=== PATIENT | male | born 1980 | race Hispanic/Latino ===

== ENCOUNTER 2017-01-23 16:42 | Observation (INO) | payer MEDICAID, OTHER ==
[2017-01-23 16:50] VITALS: BMI 23.6
--- NOTE | 2017-01-23 17:27 | ED PDOC ---
Arrival/HPI - General Chief Complaint: Psychiatric Evaluation Time Seen by Provider: 01/23/17 17:11 Historian: Patient, Police - History of Present Illness Narrative History of Present Illness (Text): 01/23/17 17:25 36-year-old male with a history of schizophrenia presents today after swimming in the [place]. Patient states he didn't know that he couldn't [place] he was swimming [place] and the police pulled him out. He denies suicidal or homicidal ideations. Denies fevers or chills. No chest pain or shortness of breath. Denies abdominal pain. Patient denies depression. Denies any complaints at present time. Past Medical History - Provider Review Nursing Documentation Reviewed: Yes - Travel History Have you recently traveled outside [place] w/in the past 3 mons?: No - Infectious Disease Hx of Infectious Diseases: None - Tetanus Immunization Tetanus Immunization: Unknown - Past Medical History Past Medical History: No Previous - Musculoskeletal/Rheumatological Hx Falls: No - Gastrointestinal Hx Gastrointestinal Disorders: No - Genitourinary/Gynecological Hx Genitourinary Disorders: No Hx Reproductive Disorders: No - Psychiatric Hx Psychophysiologic Disorder: No Hx Anxiety: No Hx Bipolar Disorder: No Hx Depression: No Hx Emotional Abuse: No Hx Physical Abuse: No Hx Schizophrenia: No Hx Sexual Abuse: No Hx Substance Use: Yes (elie) - Past Surgical History Past Surgical History: No Previous - Anesthesia Hx Anesthesia: No - Suicidal Assessment Feels Threatened In Home Enviroment: No Family/Social History - Physician Review Nursing Documentation Reviewed: Yes Family/Social History: Unknown Family HX Smoking Status: Former Smoker Hx Alcohol Use: Yes (hx. of DUI) Frequency of alcohol use: Socially Hx Substance Use: Yes (elie) Hx Substance Use Treatment: No Allergies/Home Meds Allergies/Adverse Reactions: Allergies No Known Allergies Allergy (Verified 01/23/17 16:50) Home Medications: Home Meds Medication Instructions Recorded Confirmed Unobtainable 01/23/17 01/23/17 Review of Systems - Review of Systems Constitutional: absent: Fatigue, Fevers Respiratory: absent: SOB, Cough Cardiovascular: absent: Chest Pain, Palpitations Gastrointestinal: absent: Abdominal Pain, Nausea, Vomiting Genitourinary Male: absent: Dysuria Musculoskeletal: absent: Arthralgias, Back Pain, Neck Pain Skin: absent: Rash, Pruritis Neurological: absent: Headache, Dizziness Psychiatric: absent: Anxiety, Depression, Suicidal Ideation Physical Exam Vital Signs Reviewed: Yes Vital Signs Temp Pulse Resp BP Pulse Ox 01/23/17 22:40 59 L 16 112/57 L 98 01/23/17 20:40 98.1 F 71 18 120/73 98 01/23/17 17:41 98.1 F 01/23/17 16:49 73 19 116/73 99 Temperature: Afebrile Blood Pressure: Normal Pulse: Regular Respiratory Rate: Normal Appearance: Positive for: Well-Appearing, Non-Toxic, Comfortable Pain Distress: None Mental Status: Positive for: Alert and Oriented X 3 - Systems Exam Head: Present: Atraumatic Mouth: Present: Moist Mucous Membranes Neck: Present: Normal Range of Motion Respiratory/Chest: Present: Clear to Auscultation, Good Air Exchange. No: Respiratory Distress, Accessory Muscle Use Cardiovascular: Present: Regular Rate and Rhythm, Normal S1, S2. No: Murmurs Abdomen: No: Tenderness, Distention, Rebound, Guarding Back: Present: Normal Inspection Upper Extremity: Present: Normal ROM. No: Tenderness Lower Extremity: Present: Normal ROM. No: Tenderness Neurological: Present: GCS=15, Speech Normal Skin: Present: Warm, Dry, Normal Color. No: Rashes Psychiatric: Present: Alert, Oriented x 3 Medical Decision Making ED Course and Treatment: 01/23/17 17:26 Patient is nontoxic well-appearing in no distress vital signs are stable. CBC Wbc:16.9 CMP WNL Tylenol WNL Salicylate WNL Alcohol level WNL CPK; 6994 Urine drug screen + marijuana UA; + ketones, + blood cxr: pt refused. ekg normal sinus rhythm at 78 bpm normal axis normal intervals no ST elevations pt was seen by PES screener; will need [facility] involuntary screening. pt with elevated CPK; not medically cleared for PES evaluation; refusing medical admission; refusing fluids. pt finally agreed to IV fluids; will give 2 liters NS and recheck CPK. 01/23/17 22:30 pt sleeping in er; will recheck cpk; attempt cxr again. 01/24/17 00:00 cpk improving; pt now agrees to medical admission; case discussed with dr. low; accepts admission. pt will need 1:1 and psych consult. impression: Rhabdomyolysis Admitted to [facility] observational status with one-to-one and psychiatric consult - Lab Interpretations Lab Results: 01/23/17 17:05 01/23/17 17:05 Lab Results 01/23/17 22:40: Total Creatine Kinase 4915 H, CK-MB (CK-2) 42.0 H, CK-MB (CK-2) % 0.9 L 01/23/17 17:30: Urine Opiates Screen Negative, Urine Methadone Screen Negative, Ur Barbiturates Screen Negative, Ur Phencyclidine Scrn Negative, Ur Amphetamines Screen Negative, U Benzodiazepines Scrn Negative, U Oth Cocaine Metabols Negative, U Cannabinoids Screen Positive H 01/23/17 17:30: Urine Color Yellow, Urine Appearance Clear, Urine pH 6.0, Ur Specific [place] >= 1.030, Urine Protein 30 H, Urine Glucose (UA) Negative, Urine Ketones 40 H, Urine Blood Small H, Urine Nitrate Negative, Urine Bilirubin Negative, Urine Urobilinogen 1.0 H, Ur Leukocyte Esterase Negative, Urine RBC 0 - 2, Urine WBC 0 - 2, Ur Epithelial Cells 0 - 2, Urine Bacteria Small, Hyaline Casts 0 - 2 01/23/17 17:05: Alcohol, Quantitative < 10 01/23/17 17:05: Salicylates < 1 L, Acetaminophen < 10.0 L 01/23/17 17:05: Sodium 140, Potassium 3.5 L, Chloride 99, Carbon Dioxide 31, Anion Gap 14, BUN 23 H, Creatinine 0.8, Est GFR ( Amer) > 60, Est GFR ( Non-Af Amer) > 60, Random Glucose 87, Calcium 9.4, Total Bilirubin 0.9, AST 410 H, ALT 338 H, Alkaline Phosphatase 73, Total Creatine Kinase 6994 H, CK-MB (CK-2 ) 60.5 H, CK-MB (CK-2) % 0.9 L, Total Protein 7.2, Albumin 4.1, Globulin 3.1, Albumin/Globulin Ratio 1.3 01/23/17 17:05: WBC 16.9 H D, RBC 4.41, Hgb 14.3, Hct 39.9 L, MCV 90.5, MCH 32.4 , MCHC 35.8, RDW 12.9, Plt Count 218, MPV 10.4, Gran % 84.7 H, Lymph % (Auto) 9.5 L, Upton % (Auto) 5.3, Eos % (Auto) 0.3 L, Baso % (Auto) 0.2, Gran # 14.29 H , Lymph # 1.6, Upton # 0.9 H, Eos # 0.1, Baso # 0.04 - RAD Interpretation Radiology Orders: 01/23/17 22:32 CHEST PORTABLE [RAD] Stat - Medication Orders Current Medication Orders: Discontinued Medications Sodium Chloride (Sodium Chloride 0.9%) 1,000 mls @ 999 mls/hr IV .Q1H1M STA Stop: 01/23/17 20:01 Last Admin: 01/23/17 20:31 Dose: 999 mls/hr Sodium Chloride (Sodium Chloride 0.9%) 1,000 mls @ 999 mls/hr IV .Q1H1M STA Stop: 01/23/17 20:11 Last Admin: 01/23/17 20:32 Dose: 999 mls/hr Disposition/Present on Arrival - Present on Arrival Any Indicators Present on Arrival: No History of DVT/PE: No History of Uncontrolled Diabetes: No Urinary Catheter: No History of Decub. Ulcer: No History Surgical Site Infection Following: None - Disposition Have Diagnosis and Disposition been Completed?: Yes Diagnosis: Rhabdomyolysis, Leukocytosis Disposition: HOSPITALIZED Disposition Time: 00:03 Patient Plan: Observation Condition: FAIR Referrals: PCP,NO [Primary Care Provider] - Follow up with primary
[2017-01-23 17:51] LABS: URINE BILIRUBIN NEGATIVE (NEGATIVE); URINE BLOOD SMALL (NEGATIVE); URINE GLUCOSE (UA) NEGATIVE (NEGATIVE); URINE KETONE 40 mg/dL (NEGATIVE); URINE LEUKOCYTE ESTERASE NEGATIVE Leu/uL (NEGATIVE); URINE PROTEIN 30 mg/dL (<30 mg/dL)
[2017-01-23 17:51] LABS: ADD MANUAL DIFF? NO
[2017-01-23 17:57] LABS: BASO # 0.04 K/mm3 (0.0-2.0); BASO % 0.2 % (0.0-3.0); EOS # 0.1 (0.0-0.7); EOS % 0.3 % (1.5-5.0); GRAN # 14.29 (1.4-6.5); GRAN % 84.7 % (50.0-68.0); HEMATOCRIT 39.9 % (42.0-52.0); LYMPH # 1.6 (1.2-3.4); LYMPH % 9.5 % (22.0-35.0); MEAN CELL VOLUME 90.5 fL (80.0-105.0); MEAN CORPUSCULAR HEMOGLOBIN 32.4 pg (25.0-35.0); MEAN CORPUSCULAR HGB CONC 35.8 g/dl (31.0-37.0); MEAN PLATELET VOLUME 10.4 fl (7.0-11.0); MONO # 0.9 (0.1-0.6); MONO % 5.3 % (1.0-6.0); PLATELET COUNT 218 10^3/uL (120.0-450.0); RED CELL DISTRIBUTION WIDTH 12.9 % (11.5-14.5); WHITE BLOOD COUNT 16.9 10^3/ul (4.5-11.0)
[2017-01-23 17:58] LABS: URINE APPEARANCE CLEAR (CLEAR); URINE COLOR YELLOW (YELLOW)
[2017-01-23 18:05] LABS: ALB/GLOB RATIO 1.3 (1.1-1.8); ALKALINE PHOSPHATASE 73 U/L (38-133); ALT/SGPT 338 U/L (7-56); AST/SGOT 410 U/L (15-59); BILIRUBIN,TOTAL 0.9 mg/dL (0.2-1.3); BLOOD UREA NITROGEN 23 mg/dL (7-21); CALCIUM 9.4 mg/dL (8.4-10.5); CARBON DIOXIDE 31 mmol/L (21-33); CHLORIDE 99 mmol/L (98-107); GFR AFRICAN-AMERICAN > 60; GLUCOSE,RANDOM 87 mg/dL (70-110); POTASSIUM 3.5 mmol/L (3.6-5.0); SODIUM 140 mmol/L (132-148); TOTAL PROTEIN 7.2 g/dL (5.8-8.3)
[2017-01-23 18:42] LABS: URINE BACTERIA SMALL (NEG); URINE EPITHELIAL CELLS 0 - 2 /hpf (0-5); URINE RBC 0 - 2 /hpf (0-2); URINE WBC 0 - 2 /hpf (0-6)
[2017-01-23] MEDS ORDERED: Sodium Chloride 0.9% 1,000 ML IV STA ×2 (19:01→19:11)
[2017-01-24] MEDS: Sodium Chloride 0.9% 1,000 ML IV SCH (02:14)
--- NOTE | 2017-01-24 02:23 | CP.PCM.HP ---
<Miah Moise - Last Filed: 01/24/17 02:08> History of Present Illness - History of Present Illness History of Present Illness: CC: "Bizarre behavior" HPI: Pt is a 36 year old male with a PMHx of substance abuse and psychosis who presents to the ED via EMS after being [place] swimming [place] Pt reports that he recently took a diet supplement and it made him go swimming in the river. Pt's thought patterns and speech are loose and disorganized. Pt reports that he has a history of drug and alcohol abuse, but he is has now been sober and trying to 'get his life back together'. 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 He reports that he has traveled around the country. Pt reports that he feels as there are balls inside of him that are preventing him from urinating. Pt exhibiting paranoid behavior and asking staff to not hurt him. Pt fluctuating between periods of normal conversation and crying spells. Pt denies fever, chills, chest pain, shortness of breath, nausea, and vomiting. PMHx: Substance abuse, psychosis Home medications: none reported Allergies: NKDA Past Surgical Hx: none reported Social Hx: reports hx of smoking cigarettes, using alcohol, and using drugs, though he would not specify what kind of drugs Family Hx: no fam hx reported Present on Admission - Present on Admission Any Indicators Present on Admission: No Review of Systems - Review of Systems Systems not reviewed;Unavailable: Psychotic Past Patient History - Infectious Disease Hx of Infectious Diseases: None - Tetanus Immunizations Tetanus Immunization: Unknown - Past Social History Smoking Status: Former Smoker - CARDIAC Hx Cardiac Disorders: No Hx Hypertension: No - PULMONARY Hx Tuberculosis: No - NEUROLOGICAL HX Cerebrovascular Accident: No Hx Seizures: No - HEMATOLOGICAL/ONCOLOGICAL Hx Cancer: No Hx Human Immunodeficiency Virus (HIV): No - MUSCULOSKELETAL/RHEUMATOLOGICAL Hx Falls: No - GASTROINTESTINAL Hx Gastrointestinal Disorders: No - GENITOURINARY/GYNECOLOGICAL Hx Genitourinary Disorders: No Hx Reproductive Disorders: No - PSYCHIATRIC Hx Psychophysiologic Disorder: No Hx Anxiety: No Hx Bipolar Disorder: No Hx Depression: No Hx Emotional Abuse: No Hx Physical Abuse: No Hx Schizophrenia: No Hx Sexual Abuse: No Hx Substance Use: Yes (elie) - SURGICAL HISTORY Hx Surgeries: No - ANESTHESIA Hx Anesthesia: No Meds Allergies/Adverse Reactions: Allergies Allergy/AdvReac Type Severity Reaction Status Date / Time No Known Allergies Allergy Verified 01/23/17 16:50 Physical Exam - Constitutional Appears: Agitated - Head Exam Head Exam: ATRAUMATIC, NORMOCEPHALIC - Eye Exam Eye Exam: EOMI, PERRL - ENT Exam ENT Exam: Mucous Membranes Moist, Normal Oropharynx. absent: Mucous Membranes Dry - Respiratory Exam Respiratory Exam: Clear to Auscultation Bilateral. absent: Rales, Rhonchi, Wheezes - Cardiovascular Exam Cardiovascular Exam: +S1, +S2 - GI/Abdominal Exam GI & Abdominal Exam: Soft. absent: Tenderness - Extremities Exam Extremities exam: Positive for: full ROM. Negative for: pedal edema - Neurological Exam Neurological exam: Alert, Oriented x3 - Psychiatric Exam Psychiatric exam: Manic - Skin Skin Exam: Warm Additional comments: Pt looks suntanned with prominent peter lines on his wrists and feet Results - Vital Signs Recent Vital Signs: Last Vital Signs Temp 98.1 F 01/23/17 20:40 Pulse 69 01/24/17 00:00 Resp 18 01/24/17 00:00 BP 113/64 01/24/17 00:00 Pulse Ox 97 01/24/17 00:00 - Labs Result Diagrams: 01/23/17 17:05 01/23/17 17:05 Assessment & Plan - Assessment and Plan (Free Text) Assessment: Rhabodomyolysis: Initial CK - 6994 Repeat CK - 4915 Follow up CK, CMP q4h NS IVF 200 cc/hr U/A: urine protein 30, ketones 40 H, positive for blood, urobilinogen 1.0 Leukocytosis: WBC-16.9 CXR pending Afebrile, nontachycardic U/A: urine protein 30, ketones 40 H, positive for blood, urobilinogen 1.0 Blood cultures, urine cultures pending Transaminitis: AST/ALT: 410/338 Urine tox positive for cannabinoids Abdominal ultrasound pending Hepatitis panel pending Psychosis: Psychiatry, Dr. Mitchell, consulted. Help appreciated. Ativan 1 mg IV q4h prn for agitation Prophylactic Measures: DVT: SCDs GI: Protonix 40 mg po qd <Geno Singh - Last Filed: 01/24/17 03:48> Results - Vital Signs Recent Vital Signs: Last Vital Signs Temp 98.1 F 01/23/17 20:40 Pulse 77 01/24/17 02:00 Resp 18 01/24/17 02:00 BP 132/72 01/24/17 02:00 Pulse Ox 96 01/24/17 02:00 - Labs Result Diagrams: 01/23/17 17:05 01/24/17 02:20 Labs: Laboratory Results - last 24 hr 01/24/17 02:20 Sodium 136 Potassium 2.8 L* Chloride 99 Carbon Dioxide 27 Anion Gap 13 BUN 13 Creatinine 0.7 Est GFR ( Amer) > 60 Est GFR (Non-Af Amer) > 60 Random Glucose 98 Calcium 8.3 L Total Bilirubin 0.9 AST 239 H ALT 265 H Alkaline Phosphatase 58 Total Creatine Kinase 4950 H CK-MB (CK-2) 38.9 H Total Protein 6.3 Albumin 3.4 Globulin 2.9 Albumin/Globulin Ratio 1.2 Attending/Attestation - Attestation I have personally seen and examined this patient.: Yes I have fully participated in the care of the patient.: Yes I have reviewed all pertinent clinical information: Yes Notes (Text): 01/24/17 03:46 Patient was seen when he was in bed # 1 in the ER. Patient had been somewhat agitated, talking irrelevantly constantly. Ativan 2 mg IV was ordered. Agree with history , physical examination, assessment and plan.
[2017-01-24] MEDS: Potassium Chloride 20 mEq ER Tab PO STA ×2 (02:43→03:16)
[2017-01-24 02:45] LABS: ALB/GLOB RATIO 1.2 (1.1-1.8); ALKALINE PHOSPHATASE 58 U/L (38-133); ALT/SGPT 265 U/L (7-56); AST/SGOT 239 U/L (15-59); BILIRUBIN,TOTAL 0.9 mg/dL (0.2-1.3); BLOOD UREA NITROGEN 13 mg/dL (7-21); CALCIUM 8.3 mg/dL (8.4-10.5); CARBON DIOXIDE 27 mmol/L (21-33); CHLORIDE 99 mmol/L (98-107); GFR AFRICAN-AMERICAN > 60; GLUCOSE,RANDOM 98 mg/dL (70-110); SODIUM 136 mmol/L (132-148); TOTAL PROTEIN 6.3 g/dL (5.8-8.3)
[2017-01-24 02:52] LABS: POTASSIUM 2.8 mmol/L (3.6-5.0)
[2017-01-24] MEDS ORDERED: Potassium Chloride 20 mEq ER Tab PO SCH ×2 (03:15→04:45)
[2017-01-24] MEDS ORDERED: Pantoprazole 40 mg EC Tab PO SCH (06:30)
[2017-01-24 07:29] LABS: ADD MANUAL DIFF? NO
[2017-01-24 07:33] LABS: BASO # 0.04 K/mm3 (0.0-2.0); BASO % 0.5 % (0.0-3.0); EOS # 0.2 (0.0-0.7); EOS % 2.4 % (1.5-5.0); GRAN # 5.13 (1.4-6.5); GRAN % 64.8 % (50.0-68.0); HEMATOCRIT 37.9 % (42.0-52.0); LYMPH % 24.7 % (22.0-35.0); MEAN CELL VOLUME 90.7 fL (80.0-105.0); MEAN CORPUSCULAR HEMOGLOBIN 31.6 pg (25.0-35.0); MEAN CORPUSCULAR HGB CONC 34.8 g/dl (31.0-37.0); MEAN PLATELET VOLUME 9.8 fl (7.0-11.0); MONO # 0.6 (0.1-0.6); MONO % 7.6 % (1.0-6.0); PLATELET COUNT 196 10^3/uL (120.0-450.0); RED CELL DISTRIBUTION WIDTH 13.1 % (11.5-14.5); WHITE BLOOD COUNT 7.9 10^3/ul (4.5-11.0)
[2017-01-24 07:48] LABS: ALB/GLOB RATIO 1.1 (1.1-1.8); ALKALINE PHOSPHATASE 54 U/L (38-133); ALT/SGPT 236 U/L (7-56); AST/SGOT 195 U/L (15-59); BILIRUBIN,TOTAL 0.9 mg/dL (0.2-1.3); BLOOD UREA NITROGEN 11 mg/dL (7-21); CALCIUM 8.1 mg/dL (8.4-10.5); CARBON DIOXIDE 28 mmol/L (21-33); CHLORIDE 101 mmol/L (98-107); GFR AFRICAN-AMERICAN > 60; GLUCOSE,RANDOM 83 mg/dL (70-110); MAGNESIUM 2.1 mg/dL (1.7-2.2); PHOSPHOROUS 2.9 mg/dL (2.5-4.5); POTASSIUM 3.2 mmol/L (3.6-5.0); SODIUM 136 mmol/L (132-148); TOTAL PROTEIN 5.8 g/dL (5.8-8.3)
--- NOTE | 2017-01-24 08:13 | RAD ---
HISTORY: pes eval COMPARISON: 12/05/2014 FINDINGS: LUNGS: No active pulmonary disease. PLEURA: No significant pleural effusion identified, no pneumothorax apparent. CARDIOVASCULAR: Normal. OSSEOUS STRUCTURES: No significant abnormalities. VISUALIZED UPPER ABDOMEN: Normal. OTHER FINDINGS: None. IMPRESSION: No active disease.
--- NOTE | 2017-01-24 09:04 | US ---
HISTORY: Transaminitis COMPARISON: None. TECHNIQUE: Grayscale imaging was performed. FINDINGS: LIVER: Measures 16.4 cm. Normal echogenicity of the liver parenchyma. No mass. No intrahepatic bile duct dilatation. GALLBLADDER: Unremarkable. No gallstones. COMMON BILE DUCT: Measures 5.0 mm. No stones. No dilatation. PANCREAS: Unremarkable as visualized. No mass. No ductal dilatation. RIGHT KIDNEY: Measures 11.8cm. Normal echogenicity. No calculus, mass, or hydronephrosis. LEFT KIDNEY: Measures 11.6cm. Normal echogenicity. No calculus, mass, or hydronephrosis. SPLEEN: Normal in size and contour. No mass. AORTA: No aneurysmal dilatation. IVC: Unremarkable. OTHER FINDINGS: None. IMPRESSION: Normal examination.
[2017-01-24] MEDS ORDERED: Potassium Chloride 20 mEq ER Tab PO STA (09:12)
[2017-01-24] MEDS: Potassium Chloride 20 mEq ER Tab PO SCH ×2 (10:55→15:50)
--- NOTE | 2017-01-24 16:54 | CON ---
DATE: 01/24/2017 HISTORY OF PRESENT ILLNESS: Shortly, the patient is a 36-year-old male with history of sub stance abuse and history of psychosis. One hospitalization into this facility's [facility] in [address] Robles's services. The patient stayed in the hospital for 5 days. The patient was brought in for evaluation after patient was found to swimming in [facility]. The patient presented to be disorganized, psychotic. Thought process was circumstantial and tangential. The patient was found to have rhabdomyolysis and was admitted to the medical floor. Psych consult w as called for evaluation of disorganized and psychotic behavior. The patient was seen and examined jackson tan with medical parasitologist. The patient presented to be disorganized in his thoughts and behavior. The patient had impression that he was poisoned by someone who was selling dietary supplements, sofiya nt also had impression that somebody is monitoring him and making his body to move inappropriately. The patient does not make much sense. The patient was not able to concentrate during the interview, presented to be psychotic and disorganized. The patient reported to live independently, but patient presented to be paranoid that "something is going on in my apartment, it's crazy man." The patient c onvinced that all above true, patient does not have a reasonable explanation why he was in the [place]. The patient was minimizing his story, giggling inappropriately. The patient's vitals are stable. MEDICATIONS: Reviewed. Ativan. This advertising copy writer will start Zyprexa Zydis at the nighttime in order to clear psychotic symptoms and Geodon as needed will be started. LABORATORY DATA: Reviewed. WBC cells were elevated yesterday, 16.9, today within normal limits. Ch emistry also reviewed. Potassium was low at 2.8. Today it was 3.2, creatine kinase is going down, t britney is 2736, CK-MB 30.8. Urinalysis showed blood small and urobilinogen small. Toxicology positive for cannabis. Serology was negative. PAST PSYCHIATRIC HISTORY: As this advertising copy writer mentioned above, the patient was admitted under Dr. Robles' s services in 2014 and was discharged on Risperdal 1 mg twice a day, was diagnosed with psychos is NOS, presumably drug induced cannabis abuse. MENTAL STATUS EXAMINATION: The patient presented to be , good personal hygiene. Intense eye co ntact. Speech was over-productive, pressured. Thought process was circumstantial and tangential. M ood described as "I feel 100% better." Affect was expanded, at times inappropriate. Thought content : The patient denied visual, auditory, or tactile hallucinations, denied paranoid ideations, but at the same time, the patient obviously psychotic, delusional, paranoid. Thought process was disorganiz ed. The patient denied thoughts of harming himself or others, denied intent or plan. Insight and ju dgment are limited. Impulses are well controlled. IMPRESSION: Psychosis not otherwise specified. This advertising copy writer cannot exclude substance induced psychos is, steroid induced psychosis. The patient was taking some supplements for weight lifting. The bee ent also has cannabis positive in the urine. The patient has multiple medical issues. Please see no kevin for more detailed information. Rhabdomyolysis and leukocytosis. PLAN: Zyprexa Zydis was started. This advertising copy writer offered admission to the psychiatric inpatient unit af ter patient will be stable from the medical perspective. The patient declined that offer. In that c ase, we will initiate [facility] screening process but as per medical team, patient i s not ready yet. The patient is currently on 1:1 for safety. Case was discussed with medical team a nd attending. Should you have any questions, give me a call back. Thank you very much for letting me participate in care of your patient. Paula Ingram MD cc: [phone] TT: 01/24/2017 16:53:37 Confirmation # [id number] Dictation # [id number] lita
[2017-01-24] MEDS ORDERED: OLANZapine 5 mg Disintegrating Tab PO SCH (22:00)
--- NOTE | 2017-01-24 22:57 | CARD ---
APPROVED REPORT EKG Measurement Heart [id number] <Conclusion> Normal sinus rhythm Normal ECG
[2017-01-25] MEDS: Sodium Chloride 0.9% 1,000 ML IV SCH ×4 (01:04→14:33)
[2017-01-25] MEDS ORDERED: Pantoprazole 40 mg EC Tab PO SCH (03:29)
[2017-01-25 06:48] LABS: ADD MANUAL DIFF? NO
[2017-01-25 07:04] LABS: ALKALINE PHOSPHATASE 51 U/L (38-133); ALT/SGPT 182 U/L (7-56); AST/SGOT 98 U/L (15-59); BILIRUBIN,TOTAL 0.5 mg/dL (0.2-1.3); BLOOD UREA NITROGEN 8 mg/dL (7-21); CALCIUM 8.5 mg/dL (8.4-10.5); CARBON DIOXIDE 32 mmol/L (21-33); CHLORIDE 103 mmol/L (98-107); GFR AFRICAN-AMERICAN > 60; GLUCOSE,RANDOM 92 mg/dL (70-110); POTASSIUM 4.1 mmol/L (3.6-5.0); SODIUM 140 mmol/L (132-148); TOTAL PROTEIN 5.7 g/dL (5.8-8.3)
[2017-01-25 07:17] LABS: BASO # 0.06 K/mm3 (0.0-2.0); EOS # 0.3 (0.0-0.7); GRAN # 3.17 (1.4-6.5); GRAN % 50.4 % (50.0-68.0); HEMATOCRIT 37.3 % (42.0-52.0); LYMPH # 2.3 (1.2-3.4); MEAN CELL VOLUME 92.8 fL (80.0-105.0); MEAN CORPUSCULAR HEMOGLOBIN 31.6 pg (25.0-35.0); MEAN PLATELET VOLUME 10.1 fl (7.0-11.0); MONO # 0.5 (0.1-0.6); MONO % 8.6 % (1.0-6.0); PLATELET COUNT 195 10^3/uL (120.0-450.0); RED CELL DISTRIBUTION WIDTH 13.4 % (11.5-14.5); WHITE BLOOD COUNT 6.3 10^3/ul (4.5-11.0)
--- NOTE | 2017-01-25 15:36 | CP.PCM.DIS ---
<Joaquin Fernandez - Last Filed: 01/26/17 13:40> Provider - Provider Date of Admission: 01/23/17 23:59 Attending physician: Mandi Taylor MD Primary care physician: NO PRIMARY CARE PROVIDER Consults: Dr. Paula Ingram Time Spent in preparation of Discharge (in minutes): 35 Hospital Course - Lab Results Lab Results: Most Recent Lab Values WBC 6.3 10^3/ul (4.5-11.0) D 01/25/17 06:30 RBC 4.02 10^6/uL (3.5-6.1) 01/25/17 06:30 Hgb 12.7 gm/dL (14.0-18.0) L 01/25/17 06:30 Hct 37.3 % (42.0-52.0) L 01/25/17 06:30 MCV 92.8 fL (80.0-105.0) 01/25/17 06:30 MCH 31.6 pg (25.0-35.0) 01/25/17 06:30 MCHC 34.0 g/dl (31.0-37.0) 01/25/17 06:30 RDW 13.4 % (11.5-14.5) 01/25/17 06:30 Plt Count 195 10^3/uL (120.0-450.0) 01/25/17 06:30 MPV 10.1 fl (7.0-11.0) 01/25/17 06:30 Gran % 50.4 % (50.0-68.0) 01/25/17 06:30 Lymph % (Auto) 36.0 % (22.0-35.0) H 01/25/17 06:30 Ste[place] % (Auto) 8.6 % (1.0-6.0) H 01/25/17 06:30 Eos % (Auto) 4.0 % (1.5-5.0) 01/25/17 06:30 Baso % (Auto) 1.0 % (0.0-3.0) 01/25/17 06:30 Gran # 3.17 (1.4-6.5) 01/25/17 06:30 Lymph # 2.3 (1.2-3.4) 01/25/17 06:30 Ste[place] # 0.5 (0.1-0.6) 01/25/17 06:30 Eos # 0.3 (0.0-0.7) 01/25/17 06:30 Baso # 0.06 K/mm3 (0.0-2.0) 01/25/17 06:30 Sodium 140 mmol/L (132-148) 01/25/17 06:30 Potassium 4.1 mmol/L (3.6-5.0) 01/25/17 06:30 Chloride 103 mmol/L (98-107) 01/25/17 06:30 Carbon Dioxide 32 mmol/L (21-33) 01/25/17 06:30 Anion Gap 9 (10-20) L 01/25/17 06:30 BUN 8 mg/dL (7-21) 01/25/17 06:30 Creatinine 0.7 mg/dL (0.5-1.4) 01/25/17 06:30 Est GFR ( Amer) > 60 01/25/17 06:30 Est GFR (Non-Af Amer) > 60 01/25/17 06:30 Random Glucose 92 mg/dL (70-110) 01/25/17 06:30 Calcium 8.5 mg/dL (8.4-10.5) 01/25/17 06:30 Phosphorus 2.9 mg/dL (2.5-4.5) 01/24/17 07:00 Magnesium 2.1 mg/dL (1.7-2.2) 01/24/17 07:00 Total Bilirubin 0.5 mg/dL (0.2-1.3) 01/25/17 06:30 AST 98 U/L (15-59) H 01/25/17 06:30 ALT 182 U/L (7-56) H 01/25/17 06:30 Alkaline Phosphatase 51 U/L (38-133) 01/25/17 06:30 Total Creatine Kinase 1007 U/L (35-230) H 01/25/17 06:30 CK-MB (CK-2) 9.6 ng/mL (0.0-3.6) H 01/25/17 06:30 CK-MB (CK-2) % 1.0 % (2.5-3.0) L 01/25/17 06:30 Total Protein 5.7 g/dL (5.8-8.3) L 01/25/17 06:30 Albumin 2.9 g/dL (3.0-4.8) L 01/25/17 06:30 Globulin 2.8 gm/dL 01/25/17 06:30 Albumin/Globulin Ratio 1.0 (1.1-1.8) L 01/25/17 06:30 Urine Color Yellow (YELLOW) 01/23/17 17:30 Urine Appearance Clear (CLEAR) 01/23/17 17:30 Urine pH 6.0 (4.7-8.0) 01/23/17 17:30 Ur Specific Booker >= 1.030 (1.005-1.035) 01/23/17 17:30 Urine Protein 30 mg/dL (<30 mg/dL) H 01/23/17 17:30 Urine Glucose (UA) Negative mg/dL (NEGATIVE) 01/23/17 17:30 Urine Ketones 40 mg/dL (NEGATIVE) H 01/23/17 17:30 Urine Blood Small (NEGATIVE) H 01/23/17 17:30 Urine Nitrate Negative (NEGATIVE) 01/23/17 17:30 Urine Bilirubin Negative (NEGATIVE) 01/23/17 17:30 Urine Urobilinogen 1.0 E.U./dL (<1 E.U./dL) H 01/23/17 17:30 Ur Leukocyte Esterase Negative Rohan/uL (NEGATIVE) 01/23/17 17:30 Urine RBC 0 - 2 /hpf (0-2) 01/23/17 17:30 Urine WBC 0 - 2 /hpf (0-6) 01/23/17 17:30 Ur Epithelial Cells 0 - 2 /hpf (0-5) 01/23/17 17:30 Urine Bacteria Small (NEG) 01/23/17 17:30 Hyaline Casts 0 - 2 /hpf 01/23/17 17:30 Salicylates < 1 mg/dL (2.0-20.0) L 01/23/17 17:05 Urine Opiates Screen Negative (NEGATIVE) 01/23/17 17:30 Urine Methadone Screen Negative (NEGATIVE) 01/23/17 17:30 Acetaminophen < 10.0 ug/ml (10.0-20.0) L 01/23/17 17:05 Ur Barbiturates Screen Negative (NEGATIVE) 01/23/17 17:30 Ur Phencyclidine Scrn Negative (NEGATIVE) 01/23/17 17:30 Ur Amphetamines Screen Negative (NEGATIVE) 01/23/17 17:30 U Benzodiazepines Scrn Negative (NEGATIVE) 01/23/17 17:30 U Oth Cocaine Metabols Negative (NEGATIVE) 01/23/17 17:30 U Cannabinoids Screen Positive (NEGATIVE) H 01/23/17 17:30 Alcohol, Quantitative < 10 mg/dL (0-10) 01/23/17 17:05 Hepatitis A IgM Ab Negative (NEGATIVE) 01/24/17 02:29 Hep Bs Antigen Negative (NEGATIVE) 01/24/17 02:29 Hep B Core IgM Ab Negative (NEGATIVE) 01/24/17 02:29 Hepatitis C Antibody Negative (NEGATIVE) 01/24/17 02:29 - Hospital Course Hospital Course: HPI: Pt is a 36 year old male with a PMHx of substance abuse and psychosis who presents to the ED via EMS after being [place] swimming in the [place]. Pt reports that he recently took a diet supplement and it made him go swimming in the river. Pt's thought patterns and speech are loose and disorganized. Pt reports that he has a history of drug and alcohol abuse, but he is has now been sober and trying to 'get his life back together'. 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 He reports that he has traveled around the country. Pt reports that he feels as there are balls inside of him that are preventing him from urinating. Pt exhibiting paranoid behavior and asking staff to not hurt him. Pt fluctuating between periods of normal conversation and crying spells. Pt denies fever, chills, chest pain, shortness of breath, nausea, and vomiting. Hospital Course: Patient is a 36 y/o M with history of substance abuse and psychosis who was brought in by EMS due to altered mental status and [place] On lab evaluation he was found to be mildly hypokalemic, with elevated liver enymes, and elevated creatinine kinase. He was admitted for altered mental status and rhabdomyalosis and started on IVF hydration. A hep panel and RPR were performed which were negative. An abdomenal ultrasound was performed with normal results. He was found to test positive for cannabinoids. Psychiatry was consulted, he was placed on antipsychotics and mood stabilizers and determined a candidate for in patient psychiatry. His rhabdomyolysis improved and he was determined medically stable for discharge to inpatient psychiatry. He was transferred to the psych floor. This is a brief summary of the patient's stay at this facility. For more detail , see patient's full chart. - Date & Time of H&P Date of H&P: 01/24/17 Time of H&P: 02:08 Discharge Exam - Head Exam Head Exam: ATRAUMATIC, NORMOCEPHALIC - Eye Exam Eye Exam: EOMI, Normal appearance, PERRL Pupil Exam: NORMAL ACCOMODATION, PERRL - ENT Exam ENT Exam: Mucous Membranes Moist, Normal Oropharynx - Respiratory Exam Respiratory Exam: NORMAL BREATHING PATTERN. absent: Rales, Rhonchi, Wheezes - Cardiovascular Exam Cardiovascular Exam: REGULAR RHYTHM, +S1, +S2. absent: Gallop, Rubs, Systolic Murmur - GI/Abdominal Exam GI & Abdominal Exam: Normal Bowel Sounds, Soft. absent: Distended, Rebound, Tenderness - Extremities Exam Extremities exam: normal capillary refill, normal inspection, pedal pulses present - Back Exam Back exam: NORMAL INSPECTION. absent: CVA tenderness (L), CVA tenderness (R), tenderness - Neurological Exam Neurological exam: Alert, CN II-XII Intact, Oriented x3 - Psychiatric Exam Psychiatric exam: Normal Affect - Skin Skin Exam: Dry, Intact, Normal Color (tanned), Warm Discharge Plan - Follow Up Plan Condition: FAIR Disposition: DISCHARGE TO PSYCH HOSPITAL Instructions: Rhabdomyolysis (DC), Schizophrenia (DC), Leukocytosis (DC), Leukocytosis (GEN), Suicide Prevention for Adults (DC) Additional Instructions: You are medically stable for discharge to psych floor. Please take medications and go to therapy and meetings. Please refrain from alcohol, tobacco, or drug use. If your condition worsens or new symptoms arise, please return to the emergency department. Referrals: PCP,NO [Primary Care Provider] - <Mandi Taylor MD - Last Filed: 01/26/17 16:58> Provider - Provider Date of Admission: 01/23/17 23:59 Attending physician: Mandi Taylor MD Primary care physician: NO PRIMARY CARE PROVIDER Hospital Course - Lab Results Lab Results: Micro Results 01/24/17 02:15 Urine,[place] Urine Culture - Final No Growth (<1,000 CFU/ML) Most Recent Lab Values WBC 6.3 10^3/ul (4.5-11.0) D 01/25/17 06:30 RBC 4.02 10^6/uL (3.5-6.1) 01/25/17 06:30 Hgb 12.7 gm/dL (14.0-18.0) L 01/25/17 06:30 Hct 37.3 % (42.0-52.0) L 01/25/17 06:30 MCV 92.8 fL (80.0-105.0) 01/25/17 06:30 MCH 31.6 pg (25.0-35.0) 01/25/17 06:30 MCHC 34.0 g/dl (31.0-37.0) 01/25/17 06:30 RDW 13.4 % (11.5-14.5) 01/25/17 06:30 Plt Count 195 10^3/uL (120.0-450.0) 01/25/17 06:30 MPV 10.1 fl (7.0-11.0) 01/25/17 06:30 Gran % 50.4 % (50.0-68.0) 01/25/17 06:30 Lymph % (Auto) 36.0 % (22.0-35.0) H 01/25/17 06:30 [place] % (Auto) 8.6 % (1.0-6.0) H 01/25/17 06:30 Eos % (Auto) 4.0 % (1.5-5.0) 01/25/17 06:30 Baso % (Auto) 1.0 % (0.0-3.0) 01/25/17 06:30 Gran # 3.17 (1.4-6.5) 01/25/17 06:30 Lymph # 2.3 (1.2-3.4) 01/25/17 06:30 [place] # 0.5 (0.1-0.6) 01/25/17 06:30 Eos # 0.3 (0.0-0.7) 01/25/17 06:30 Baso # 0.06 K/mm3 (0.0-2.0) 01/25/17 06:30 Sodium 140 mmol/L (132-148) 01/25/17 06:30 Potassium 4.1 mmol/L (3.6-5.0) 01/25/17 06:30 Chloride 103 mmol/L (98-107) 01/25/17 06:30 Carbon Dioxide 32 mmol/L (21-33) 01/25/17 06:30 Anion Gap 9 (10-20) L 01/25/17 06:30 BUN 8 mg/dL (7-21) 01/25/17 06:30 Creatinine 0.7 mg/dL (0.5-1.4) 01/25/17 06:30 Est GFR ( Amer) > 60 01/25/17 06:30 Est GFR (Non-Af Amer) > 60 01/25/17 06:30 Random Glucose 92 mg/dL (70-110) 01/25/17 06:30 Calcium 8.5 mg/dL (8.4-10.5) 01/25/17 06:30 Phosphorus 2.9 mg/dL (2.5-4.5) 01/24/17 07:00 Magnesium 2.1 mg/dL (1.7-2.2) 01/24/17 07:00 Total Bilirubin 0.5 mg/dL (0.2-1.3) 01/25/17 06:30 AST 98 U/L (15-59) H 01/25/17 06:30 ALT 182 U/L (7-56) H 01/25/17 06:30 Alkaline Phosphatase 51 U/L (38-133) 01/25/17 06:30 Total Creatine Kinase 1007 U/L (35-230) H 01/25/17 06:30 CK-MB (CK-2) 9.6 ng/mL (0.0-3.6) H 01/25/17 06:30 CK-MB (CK-2) % 1.0 % (2.5-3.0) L 01/25/17 06:30 Total Protein 5.7 g/dL (5.8-8.3) L 01/25/17 06:30 Albumin 2.9 g/dL (3.0-4.8) L 01/25/17 06:30 Globulin 2.8 gm/dL 01/25/17 06:30 Albumin/Globulin Ratio 1.0 (1.1-1.8) L 01/25/17 06:30 Urine Color Yellow (YELLOW) 01/23/17 17:30 Urine Appearance Clear (CLEAR) 01/23/17 17:30 Urine pH 6.0 (4.7-8.0) 01/23/17 17:30 Ur Specific Booker >= 1.030 (1.005-1.035) 01/23/17 17:30 Urine Protein 30 mg/dL (<30 mg/dL) H 01/23/17 17:30 Urine Glucose (UA) Negative mg/dL (NEGATIVE) 01/23/17 17:30 Urine Ketones 40 mg/dL (NEGATIVE) H 01/23/17 17:30 Urine Blood Small (NEGATIVE) H 01/23/17 17:30 Urine Nitrate Negative (NEGATIVE) 01/23/17 17:30 Urine Bilirubin Negative (NEGATIVE) 01/23/17 17:30 Urine Urobilinogen 1.0 E.U./dL (<1 E.U./dL) H 01/23/17 17:30 Ur Leukocyte Esterase Negative Rohan/uL (NEGATIVE) 01/23/17 17:30 Urine RBC 0 - 2 /hpf (0-2) 01/23/17 17:30 Urine WBC 0 - 2 /hpf (0-6) 01/23/17 17:30 Ur Epithelial Cells 0 - 2 /hpf (0-5) 01/23/17 17:30 Urine Bacteria Small (NEG) 01/23/17 17:30 Hyaline Casts 0 - 2 /hpf 01/23/17 17:30 Salicylates < 1 mg/dL (2.0-20.0) L 01/23/17 17:05 Urine Opiates Screen Negative (NEGATIVE) 01/23/17 17:30 Urine Methadone Screen Negative (NEGATIVE) 01/23/17 17:30 Acetaminophen < 10.0 ug/ml (10.0-20.0) L 01/23/17 17:05 Ur Barbiturates Screen Negative (NEGATIVE) 01/23/17 17:30 Ur Phencyclidine Scrn Negative (NEGATIVE) 01/23/17 17:30 Ur Amphetamines Screen Negative (NEGATIVE) 01/23/17 17:30 U Benzodiazepines Scrn Negative (NEGATIVE) 01/23/17 17:30 U Oth Cocaine Metabols Negative (NEGATIVE) 01/23/17 17:30 U Cannabinoids Screen Positive (NEGATIVE) H 01/23/17 17:30 Alcohol, Quantitative < 10 mg/dL (0-10) 01/23/17 17:05 RPR Nonreactive (NONREACTIVE) 01/25/17 06:30 Hepatitis A IgM Ab Negative (NEGATIVE) 01/24/17 02:29 Hep Bs Antigen Negative (NEGATIVE) 01/24/17 02:29 Hep B Core IgM Ab Negative (NEGATIVE) 01/24/17 02:29 Hepatitis C Antibody Negative (NEGATIVE) 01/24/17 02:29 Attending/Attestation - Attestation I have personally seen and examined this patient.: Yes I have fully participated in the care of the patient.: Yes I have reviewed all pertinent clinical information, including history, physical exam and plan: Yes Notes (Text): Patient was seen and examined with medical aide .Agreed with resident assessment and plan. 36 year old male with a PMHx of substance abuse and psychosis was admitted initially to medical floor with Rhabdomylosis, was treated with IV hydration, renal functions are stable, now in Psychiatric floor, Patient CK level has come down , he is ambulatory, creatinin is normal.Venous doppler was done as he was c /o leg pain, it is negative for DVT.There is no active medical issue at this time.We will sign off.Please call us back if any question. Management plan was discussed in detail with patient Education was provided.
[2017-01-25 16:43] VITALS: BP 109/69; PULSE 77; RESP 20; TEMP 98.3; O2SAT 100
--- NOTE | 2017-01-25 17:19 | PN ---
DATE: 01/25/2017 The patient was followed up today. The patient still presented to be disorganized in his thoughts an d behavior. The patient still feels paranoid that people are poisoning him. At the same time, sofiya osuna has disorganized thoughts and behavior. The patient is willing to sign himself into the psychiatr ic inpatient unit. The patient was educated about Zyprexa. Risks, benefits and alternatives were di scussed. The patient verbalized understanding. VITAL SIGNS: Seems to be stable. Temperature 98.3, pulse is 77, blood pressure 109/69, respirations 20, oxygen saturation is 100%. MEDICATIONS: Reviewed. Motrin, Ativan, Zyprexa Zydis 5 mg twice a day, Geodon 20 mg q. 6 hours p.r. n. LABORATORIES: Reviewed. Initially, patient has leukocytosis with WBC cells going down 6.3. Prepress Operator ry reviewed, seems to be within normal limits now. CK-MB going down. Creatine kinase is going down. Urinalysis within normal limits. Toxicology positive for cannabis. Hepatitis panel negative. MENTAL STATUS EXAMINATION: The patient appears to be disorganized, staring at this field underwriter. Speech w as over-productive. Mood described "I'm totally fine". Affect was reactive, mood congruent. Though t process is disorganized, circumferential and tangential. Thought content: The patient appears to be responding to internal stimuli, paranoid, but denied thoughts of harming himself or others. Insig ht and judgment are limited. Impulses well controlled. IMPRESSION: Rule out schizophrenia spectrum disorder, rule out substance induced psychosis. The pat eric was found swimming in [facility], was brought in by police, presented to be disorganized. PLAN: The patient is willing to go to the psychiatric inpatient unit. The patient was educated abou t his rights about 48-hour notice. The patient verbalized understanding. Risks, benefits and altern atives of the medications were discussed with the patient. The patient said that he needs to be disc harged from the hospital before 02/01. The patient signed consent for treatment, will be transferred today for further evaluation and stabilization, medication titration. Thank you very much for letting me participate in care of your patient. Case was discussed with [facility] team. Paula Ingram MD cc: [id number] TT: 01/25/2017 17:18:43 Confirmation # [id number] Dictation # [id number]
[2017-01-25] MEDS ORDERED: OLANZapine 5 mg Disintegrating Tab PO SCH (22:00)
== END 2017-01-25 18:54 ==
LOC: ED 16:42 → ERH 23:59 → 5RSO 01-24 04:19
PROVIDERS: ADMIT Internal Medicine; ATTEND Internal Medicine
DX: M62.82 Rhabdomyolysis (principal); F29 Unspecified psychosis not due to a substance or known physiological condition; D72.829 Elevated white blood cell count, unspecified; R41.82 Altered mental status, unspecified; E87.6 Hypokalemia; R74.0 Nonspecific elevation of levels of transaminase and lactic acid dehydrogenase [LDH]; R79.89 Other specified abnormal findings of blood chemistry; Z87.891 Personal history of nicotine dependence
CPT/HCPCS: 36415; 71010; 76700; 80053; 80074; 81001; 82550; 82553; 83735; 84100; 85025; 86592; 87040; 87086; 90791; 93005; 96360; 96361; 96374; 99285; G0378; G0480; J2060; J3480; J7040

== ENCOUNTER 2017-01-25 18:00 | Inpatient (IN) | payer MEDICAID, OTHER ==
[2017-01-25 19:07] VITALS: RESP 20
[2017-01-25] MEDS ORDERED: Alum-Mag Hydrox-Simethicone Susp (30 mL) PO PRN (20:09)
[2017-01-25] MEDS ORDERED: Magnesium Hydroxide Susp 30 ml UD PO PRN (20:09)
[2017-01-25] MEDS: OLANZapine 5 mg Disintegrating Tab PO SCH (21:38)
[2017-01-26 08:05] LABS: CHOLESTEROL 116 mg/dL (130-200)
[2017-01-26 08:11] LABS: ADD MANUAL DIFF? NO
[2017-01-26 08:15] LABS: BASO # 0.03 K/mm3 (0.0-2.0); BASO % 0.5 % (0.0-3.0); EOS # 0.4 (0.0-0.7); EOS % 5.5 % (1.5-5.0); GRAN # 3.27 (1.4-6.5); GRAN % 51.3 % (50.0-68.0); HEMATOCRIT 40.9 % (42.0-52.0); LYMPH # 2.1 (1.2-3.4); LYMPH % 33.4 % (22.0-35.0); MEAN CELL VOLUME 93.4 fL (80.0-105.0); MEAN CORPUSCULAR HEMOGLOBIN 31.7 pg (25.0-35.0); MEAN PLATELET VOLUME 10.4 fl (7.0-11.0); MONO # 0.6 (0.1-0.6); MONO % 9.3 % (1.0-6.0); PLATELET COUNT 229 10^3/uL (120.0-450.0); RED CELL DISTRIBUTION WIDTH 13.3 % (11.5-14.5); WHITE BLOOD COUNT 6.4 10^3/ul (4.5-11.0)
[2017-01-26 08:19] LABS: FREE T4 1.04 ng/dL (0.78-2.19)
[2017-01-26 08:28] LABS: ALB/GLOB RATIO 1.1 (1.1-1.8); ALKALINE PHOSPHATASE 57 U/L (38-133); ALT/SGPT 170 U/L (7-56); AST/SGOT 67 U/L (15-59); BILIRUBIN,TOTAL 0.5 mg/dL (0.2-1.3); BLOOD UREA NITROGEN 9 mg/dL (7-21); CALCIUM 9.1 mg/dL (8.4-10.5); CARBON DIOXIDE 35 mmol/L (21-33); CHLORIDE 99 mmol/L (98-107); GFR AFRICAN-AMERICAN > 60; GLUCOSE,RANDOM 94 mg/dL (70-110); POTASSIUM 3.9 mmol/L (3.6-5.0); SODIUM 140 mmol/L (132-148); TOTAL PROTEIN 6.4 g/dL (5.8-8.3)
[2017-01-26 08:33] LABS: THYROID STIMULATING HORMONE 1.77 mIU/mL (0.46-4.68)
[2017-01-26] MEDS: OLANZapine 5 mg Disintegrating Tab PO SCH ×2 (09:47→22:29)
--- NOTE | 2017-01-26 11:15 | CP.PCM.CON ---
<Joaquin Fernandez - Last Filed: 01/26/17 14:57> History of Present Illness - History of Present Illness History of Present Illness: HPI: Pt is a 36 year old male with a PMHx of substance abuse and psychosis who is being evaluated on the psychiatry floor. He recently was hospitalized after being brought to the hospital by EMS after being found swimming [place] the [place]. He reported that he recently took a diet supplement and it made him go swimming in the river. He was treated for rhabdomyolysis during his hospital stay. He currently has organized thought and patterns. He reports that he has a history of drug and alcohol abuse, but he is has now been sober and trying to ' get his life back together'. 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. He reports that he has traveled around the country. He denies any fever, chills, chest pain, shortness of breath, nausea, and vomiting. He does complain of some calf pain which he attributes to running and swimming. PMHx: Substance abuse, psychosis Past Surgical Hx: none reported Family Hx: no fam hx reported Social Hx: reports hx of smoking cigarettes, using alcohol, and using drugs, though he would not specify what kind of drugs Home medications: none reported Allergies: NKDA Review of Systems - Constitutional Constitutional: absent: Chills, Fever - EENT Eyes: absent: Change in Vision Ears: absent: Decreased Hearing, Disequilibrium Nose/Mouth/Throat: absent: Nasal Discharge, Sore Throat - Cardiovascular Cardiovascular: absent: Chest Pain, Claudication, Dyspnea, Leg Edema - Respiratory Respiratory: absent: Cough, Dyspnea - Gastrointestinal Gastrointestinal: absent: Abdominal Pain, Constipation, Diarrhea, Nausea, Vomiting - Genitourinary Genitourinary: absent: Change in Urinary Stream, Dysuria - Musculoskeletal Musculoskeletal: Muscle Cramps (right calf), Stiffness. absent: Numbness, Tingling - Integumentary Integumentary: absent: Lesions, Rash - Neurological Neurological: absent: Dizziness, Numbness, Weakness - Psychiatric Psychiatric: Paranoia. absent: Anxiety, Depression, Visual Hallucinations, Tactile Hallucinations - Endocrine Endocrine: absent: Fatigue, Palpitations - Hematologic/Lymphatic Hematologic: absent: Lymphadenopathy Past Patient History - Infectious Disease Hx of Infectious Diseases: None - Tetanus Immunizations Tetanus Immunization: Unknown - Past Social History Smoking Status: Former Smoker Chewing Tobacco Use: No Cigar Use: No Alcohol: Occasional Drugs: Cannabis Home Situation {Lives}: Alone - CARDIAC Hx Cardiac Disorders: No Hx Hypertension: No - PULMONARY Hx Respiratory Disorders: No - NEUROLOGICAL HX Cerebrovascular Accident: No Hx Seizures: No - HEENT Hx HEENT Problems: No - RENAL Hx Chronic Kidney Disease: No - ENDOCRINE/METABOLIC Hx Endocrine Disorders: No - HEMATOLOGICAL/ONCOLOGICAL Hx Cancer: No Hx Human Immunodeficiency Virus (HIV): No - INTEGUMENTARY Hx Dermatological Problems: No - MUSCULOSKELETAL/RHEUMATOLOGICAL Hx Falls: No - GASTROINTESTINAL Hx Gastrointestinal Disorders: No - GENITOURINARY/GYNECOLOGICAL Hx Genitourinary Disorders: Yes (urinary retention 2014) - PSYCHIATRIC Hx Substance Use: Yes - SURGICAL HISTORY Hx Surgeries: No - ANESTHESIA Hx Anesthesia: No Meds Allergies/Adverse Reactions: Allergies Allergy/AdvReac Type Severity Reaction Status Date / Time No Known Allergies Allergy Verified 01/25/17 21:02 - Medications Medications: Current Medications Acetaminophen (Tylenol 325mg Tab) 650 mg PO Q4 PRN PRN Reason: Pain, Mild (1-3) Al Hydrox/Mg Hydrox/Simethicone (Maalox Plus 30 Ml) 30 ml PO DAILY PRN PRN Reason: Upset Stomach Lorazepam (Ativan) 2 mg PO Q6H PRN; Protocol PRN Reason: Anxiety Lorazepam (Ativan) 2 mg IM Q6H PRN; Protocol PRN Reason: Anxiety Magnesium Hydroxide (Milk Of Magnesia) 30 ml PO DAILY PRN PRN Reason: Constipation Olanzapine (Zyprexa Zydis) 5 mg PO AMHS REBECA PRN Reason: Protocol Last Admin: 01/26/17 09:47 Dose: 5 mg Trazodone HCl (Desyrel) 50 mg PO HS PRN PRN Reason: Insomnia Ziprasidone (Geodon Cap) 20 mg PO Q6H PRN; Protocol PRN Reason: Agitation Ziprasidone (Geodon Inj) 20 mg IM Q6H PRN; Protocol PRN Reason: Agitation Physical Exam - Constitutional Appears: Non-toxic, No Acute Distress - Head Exam Head Exam: ATRAUMATIC, NORMOCEPHALIC - Eye Exam Eye Exam: EOMI, Normal appearance, PERRL Pupil Exam: NORMAL ACCOMODATION, PERRL - ENT Exam ENT Exam: Mucous Membranes Moist, Normal Oropharynx - Neck Exam Neck exam: Positive for: Normal Inspection. Negative for: Tenderness, Thyromegaly - Respiratory Exam Respiratory Exam: Clear to Auscultation Bilateral, NORMAL BREATHING PATTERN. absent: Rales, Rhonchi, Wheezes - Cardiovascular Exam Cardiovascular Exam: REGULAR RHYTHM, +S1, +S2. absent: Gallop, Rubs, Systolic Murmur - GI/Abdominal Exam GI & Abdominal Exam: Normal Bowel Sounds, Soft. absent: Tenderness - Rectal Exam Rectal Exam: Deferred - Extremities Exam Extremities exam: Positive for: calf tenderness (right calf along later gastroc) , full ROM, normal capillary refill, normal inspection, pedal pulses present. Negative for: pedal edema - Back Exam Back exam: NORMAL INSPECTION. absent: paraspinal tenderness, tenderness - Neurological Exam Neurological exam: Alert, CN II-XII Intact, Oriented x3 - Psychiatric Exam Psychiatric exam: Normal Affect, Normal Mood - Skin Skin Exam: Dry, Intact, Normal Color (tanned) Results - Vital Signs Recent Vital Signs: Last Vital Signs Temp 97.5 F L 01/26/17 07:38 Pulse 62 01/26/17 07:38 Resp 20 01/26/17 07:38 BP 99/66 L 01/26/17 07:38 Pulse Ox - Labs Result Diagrams: 01/26/17 08:10 01/26/17 08:10 Labs: Laboratory Results - last 24 hr 01/26/17 01/26/17 01/26/17 07:00 07:15 07:15 WBC RBC Hgb Hct MCV MCH MCHC RDW Plt Count MPV Gran % Lymph % (Auto) [place] % (Auto) Eos % (Auto) Baso % (Auto) Gran # Lymph # [place] # Eos # Baso # Sodium Potassium Chloride Carbon Dioxide Anion Gap BUN Creatinine Est GFR ( Amer) Est GFR (Non-Af Amer) Random Glucose Calcium Total Bilirubin AST ALT Alkaline Phosphatase Total Creatine Kinase 456 H CK-MB (CK-2) 6.3 H CK-MB (CK-2) % 1.4 L Total Protein Albumin Globulin Albumin/Globulin Ratio Triglycerides 98 Cholesterol 116 L LDL Cholesterol Direct 50 HDL Cholesterol 45 Free T4 1.04 TSH 3rd Generation 1.77 01/26/17 01/26/17 08:10 08:10 WBC 6.4 RBC 4.38 Hgb 13.9 L Hct 40.9 L MCV 93.4 MCH 31.7 MCHC 34.0 RDW 13.3 Plt Count 229 MPV 10.4 Gran % 51.3 Lymph % (Auto) 33.4 [place] % (Auto) 9.3 H Eos % (Auto) 5.5 H Baso % (Auto) 0.5 Gran # 3.27 Lymph # 2.1 [place] # 0.6 Eos # 0.4 Baso # 0.03 Sodium 140 Potassium 3.9 Chloride 99 Carbon Dioxide 35 H Anion Gap 10 BUN 9 Creatinine 0.7 Est GFR ( Amer) > 60 Est GFR (Non-Af Amer) > 60 Random Glucose 94 Calcium 9.1 Total Bilirubin 0.5 AST 67 H ALT 170 H Alkaline Phosphatase 57 Total Creatine Kinase CK-MB (CK-2) CK-MB (CK-2) % Total Protein 6.4 Albumin 3.4 Globulin 3.0 Albumin/Globulin Ratio 1.1 Triglycerides Cholesterol LDL Cholesterol Direct HDL Cholesterol Free T4 TSH 3rd Generation Assessment & Plan - Assessment and Plan (Free Text) Assessment: 36 y/o M evaluated on psych floor for psychosis, substance abuse, complaining of calf pain. Plan: Psychosis * Management as per psychiatry * Currently on Zyprexa, Traxodone, Ativan, and Geodon * Encouraged to attend groups and therapy sessions Substance abuse * UDS positive for marijuana * Encourage abstinence Calf pain * Ultrasound ordered to r/o DVT * tylenol for pain Rhabdomyolysis * Creatinine kinase currently 456- decreased from yesterday * LFT's trending down from yesterday * kidney function wnl * encouraged oral hydration PPX: * tylenol for pain * Milk of mag and malox * encouraged to ambulate Assessment and plan discussed with attending physician. <Brandon BARKSDALE,Mandi - Last Filed: 01/26/17 17:14> Meds - Medications Medications: Current Medications Acetaminophen (Tylenol 325mg Tab) 650 mg PO Q4 PRN PRN Reason: Pain, Mild (1-3) Al Hydrox/Mg Hydrox/Simethicone (Maalox Plus 30 Ml) 30 ml PO DAILY PRN PRN Reason: Upset Stomach Ibuprofen (Motrin Tab) 400 mg PO TID PRN PRN Reason: Pain, moderate (4-7) Lorazepam (Ativan) 2 mg PO Q6H PRN; Protocol PRN Reason: Anxiety Lorazepam (Ativan) 2 mg IM Q6H PRN; Protocol PRN Reason: Anxiety Magnesium Hydroxide (Milk Of Magnesia) 30 ml PO DAILY PRN PRN Reason: Constipation Olanzapine (Zyprexa Zydis) 5 mg PO AMHS REBECA PRN Reason: Protocol Last Admin: 01/26/17 09:47 Dose: 5 mg Trazodone HCl (Desyrel) 50 mg PO HS PRN PRN Reason: Insomnia Ziprasidone (Geodon Cap) 20 mg PO Q6H PRN; Protocol PRN Reason: Agitation Ziprasidone (Geodon Inj) 20 mg IM Q6H PRN; Protocol PRN Reason: Agitation Results - Vital Signs Recent Vital Signs: Last Vital Signs Temp 97.5 F L 01/26/17 07:38 Pulse 62 01/26/17 07:38 Resp 20 01/26/17 07:38 BP 99/66 L 01/26/17 07:38 Pulse Ox - Labs Result Diagrams: 01/26/17 08:10 01/26/17 08:10 Labs: Laboratory Results - last 24 hr 01/26/17 01/26/17 01/26/17 07:00 07:15 07:15 WBC RBC Hgb Hct MCV MCH MCHC RDW Plt Count MPV Gran % Lymph % (Auto) [place] % (Auto) Eos % (Auto) Baso % (Auto) Gran # Lymph # [place] # Eos # Baso # Sodium Potassium Chloride Carbon Dioxide Anion Gap BUN Creatinine Est GFR ( Amer) Est GFR (Non-Af Amer) Random Glucose Calcium Total Bilirubin AST ALT Alkaline Phosphatase Total Creatine Kinase 456 H CK-MB (CK-2) 6.3 H CK-MB (CK-2) % 1.4 L Total Protein Albumin Globulin Albumin/Globulin Ratio Triglycerides 98 Cholesterol 116 L LDL Cholesterol Direct 50 HDL Cholesterol 45 Free T4 1.04 TSH 3rd Generation 1.77 01/26/17 01/26/17 08:10 08:10 WBC 6.4 RBC 4.38 Hgb 13.9 L Hct 40.9 L MCV 93.4 MCH 31.7 MCHC 34.0 RDW 13.3 Plt Count 229 MPV 10.4 Gran % 51.3 Lymph % (Auto) 33.4 [place] % (Auto) 9.3 H Eos % (Auto) 5.5 H Baso % (Auto) 0.5 Gran # 3.27 Lymph # 2.1 [place] # 0.6 Eos # 0.4 Baso # 0.03 Sodium 140 Potassium 3.9 Chloride 99 Carbon Dioxide 35 H Anion Gap 10 BUN 9 Creatinine 0.7 Est GFR ( Amer) > 60 Est GFR (Non-Af Amer) > 60 Random Glucose 94 Calcium 9.1 Total Bilirubin 0.5 AST 67 H ALT 170 H Alkaline Phosphatase 57 Total Creatine Kinase CK-MB (CK-2) CK-MB (CK-2) % Total Protein 6.4 Albumin 3.4 Globulin 3.0 Albumin/Globulin Ratio 1.1 Triglycerides Cholesterol LDL Cholesterol Direct HDL Cholesterol Free T4 TSH 3rd Generation Attending/Attestation - Attestation I have personally seen and examined this patient.: Yes I have fully participated in the care of the patient.: Yes I have reviewed all pertinent clinical information: Yes Notes (Text): 01/26/17 17:11 Patient was seen and examined with medical biller/coder .Agreed with resident assessment and plan. 36 Yrs old male with PMH of Schizophrenia , was treated for Rhabdomylosis on medical floor, now in [facility]iatric [facility] for treatment of hallucinations. CK level has come down, venous doppler of leg is negative for DVT.Renal function are stable. We will sign off. Please call us back if any question. Management plan was discussed in detail with patient Education was provided.
--- NOTE | 2017-01-26 15:23 | PCM.PSYCH ---
Initial Psychiatric Evaluation - Initial Psychiatric Evaluation Type of Admission: Voluntary Legal Status: Capacity (patient has capacity to sign consent for treatment) Chief Complaint (in patient's own words): 'I'm doing much better, I don't know what happened with me, I don't know what I was doing in the [facility], I wanted to put my life together, wanted to be a model, but something have happened". Patient's Reaction to Hospitalization: patient was transferred from the medical floor for evaluation and stabilization of disorganized thoughts and disorganized behavior,, please see my initial consultation note for more detailed information. History of Present Illness and Precipitating Events: shortly patient is a 36 year old male with a PMHx of substance abuse and psychosis, 1 previous psychiatric admission in to this facility in [address] Robles's services, patient was brought in byEMS after being found swimming in the [facility]. initially patient was admitted on the medical floor for rhabdomyolysis, patient was seen by this promotion writer as a bus info consultant, patient was found to be disorganized in his thoughts and behavior, was offered to admission , patient needs further evaluation and stabilization, medication initiation and titration, close observation. at the time of initial evaluation on med floor pt had impression that someone was poisoning him, also atient had impression that somebody is monitoring team and and controlling him and making his body to move inappropriately. Patient also was not able to concentrate during the interview, has poor insight, was giggling inappropriately, thought process was circumstantial and tangential. Patient was seen today at treatment team meeting room, patient presented to have good ADLs, fear personal hygiene. Patient lost older than his chronological age, very tanned, patient was pleasant and corporative,at the same time patient still has disorganized thoughts and behavior but at the same time with much improvement. Patient's insight is improving, but patient signed 48 hour notice requesting to be discharged. Patient has no clear explanation of what he was doing in [facility] besides "someone was poisoning me", pt said he was taking some supplements "for weight lifting", "I have history of using drugs and when you use drugs you expect to have something like hallucinations, but when you are not using them and have hallucinations it could be scarry", pt said he was not using any drugs, has no clear explanation why UDS was positive for cannabis, pt seems to be unreliable historian. obviously pt is improving, taking meds. patient denied being depressed, denied thoughts of harming himself or others, denied hearing voices, denied seeing things, was still patient has thought process to be disorganized, patient still delusional. Patient denied feeling anxious, denied history or being abused, denied using drugs, denied smoking, denied alcohol use. Medical history: Patient has rhabdomyolysis, improving, was cleared by medical team. Past psychiatric history: Patient has 1 admission to this facility psychiatric inpatient units in [address] as this admission. Patient has history of substance abuse and psychotic symptoms in the past.patient was on Risperdal before, patient reported that he doesn't want to be on Risperdal it any longer wants to continue Zyprexa. Family Hx: no fam hx reported social history: Patient works in the [employer]. 01/26/17 08:10 01/26/17 08:10 Lab Results 01/26/17 08:10: Sodium 140, Potassium 3.9, Chloride 99, Carbon Dioxide 35 H, Anion Gap 10, BUN 9, Creatinine 0.7, Est GFR ( Amer) > 60, Est GFR (Non- Af Amer) > 60, Random Glucose 94, Calcium 9.1, Total Bilirubin 0.5, AST 67 H, ALT 170 H, Alkaline Phosphatase 57, Total Protein 6.4, Albumin 3.4, Globulin 3.0 , Albumin/Globulin Ratio 1.1 01/26/17 08:10: WBC 6.4, RBC 4.38, Hgb 13.9 L, Hct 40.9 L, MCV 93.4, MCH 31.7, MCHC 34.0, RDW 13.3, Plt Count 229, MPV 10.4, Gran % 51.3, Lymph % (Auto) 33.4, [place] % (Auto) 9.3 H, Eos % (Auto) 5.5 H, Baso % (Auto) 0.5, Gran # 3.27, Lymph # 2.1, [place] # 0.6, Eos # 0.4, Baso # 0.03 01/26/17 07:15: Triglycerides 98, Cholesterol 116 L, LDL Cholesterol Direct 50, HDL Cholesterol 45 01/26/17 07:15: Free T4 1.04, TSH 3rd Generation 1.77 01/26/17 07:00: Total Creatine Kinase 456 H, CK-MB (CK-2) 6.3 H, CK-MB (CK-2) % 1.4 L Vital Signs Temp Pulse Pulse Resp BP 01/26/17 07:38 97.5 F L 62 20 99/66 L 01/25/17 19:05 72 20 01/25/17 19:01 72 atient tolerates medications well, no side effects observed or reported, aims 0 , no EPS Current Medications: Active Medications Generic Name Dose Route Start Last Admin Trade Name Freq PRN Reason Stop Dose Admin Acetaminophen 650 mg 01/25/17 20:09 Tylenol 325mg Tab PO Q4 PRN Pain, Mild (1-3) Al Hydrox/Mg Hydrox/Simethicone 30 ml 01/25/17 20:09 Maalox Plus 30 Ml PO DAILY PRN Upset Stomach Lorazepam 2 mg 01/25/17 20:07 Ativan PO Q6H PRN Anxiety Protocol Lorazepam 2 mg 01/25/17 20:08 Ativan IM Q6H PRN Anxiety Protocol Magnesium Hydroxide 30 ml 01/25/17 20:09 Milk Of Magnesia PO DAILY PRN Constipation Olanzapine 5 mg 01/25/17 22:00 01/26/17 09:47 Zyprexa Zydis PO 5 mg AMHS REBECA Administration Protocol Trazodone HCl 50 mg 01/25/17 20:05 Desyrel PO HS PRN Insomnia Ziprasidone 20 mg 01/25/17 20:06 Geodon Cap PO Q6H PRN Agitation Protocol Ziprasidone 20 mg 01/25/17 20:07 Geodon Inj IM Q6H PRN Agitation Protocol Past Psychiatric History - Past Psychiatric History Previous Treatment History: Inpatient Prior Professional Help: see HPI Prior Psychiatric Treatment: see HPI At what hospital: see HPI Duration: see HPI Nature of Treatment: see HPI Explanation of prior treatment: see HPI History of Abuse: see HPIdenied History of ETOH/Drug Use: see HPI History of Family Illness: see HPI Pertinent Medical Hx (Current Medical&Sleep Prob, Allergies): Allergies Allergy/AdvReac Type Severity Reaction Status Date / Time No Known Allergies Allergy Verified 01/25/17 21:02 Ibuprofen [Motrin Tab] 400 mg PO Q6H PRN tab 01/25/17 LORazepam [Ativan] 0.5 mg IVP Q6H PRN vial 01/25/17 OLANZapine [Zyprexa Zydis] 5 mg PO AMHS odt 01/25/17 Pantoprazole [Protonix EC Tab] 40 mg PO ACB ect 01/25/17 Ziprasidone [Geodon Inj] 20 mg IM Q6H PRN vial 01/25/17 Review of Systems - Review of Systems Systems not reviewed;Unavailable: Acuity of Condition - Constitutional Constitutional: UN - EENT Eyes: As Per HPI Ears: As Per HPI Nose/Mouth/Throat: As Per HPI - Cardiovascular Cardiovascular: As Per HPI - Respiratory Respiratory: As Per HPI - Gastrointestinal Gastrointestinal: As Per HPI - Genitourinary Genitourinary: As Per HPI - Reproductive: Male Reproductive:Male: As Per HPI - Musculoskeletal Musculoskeletal: As Par HPI - Integumentary Integumentary: As Per HPI - Neurological Neurological: As Per HPI - Psychiatric Psychiatric: As Per HPI - Endocrine Endocrine: As Per HPI Mental Status Examination - Personal Presentation Personal Presentation: Looks stated age - Affect Affect: Constricted - Motor Activity Motor Activity: Calm - Reliability in Providing Information Reliability in Providing Information: Poor, due to alteration in thoughts - Speech Speech: Disorganized (but with improvement) - Formal Thought Process Formal Thought Process: Delusions, Circumstantial - Hallucinations/Delusions Delusions: Persecution - Obsessions/Compulsions Obsessions: None Compulsions: None - Cognitive Functions Orientation: Person, Place, Situation Sensorium: Alert Attention/Concentration: Easily distracted Abstract Thinking: [place] Estimate of Intelligence: Average Judgement: Intact, as evidence by: Insight regarding need for hospitalization - Risk Risk: Diminished functioning - Strength & Assets Inventory Strength & Assets Inventory: Employment status, Employment history, Skills, Cooperative, Other (patient is in good physical health) - Limitations Limitations: Living alone, Other (istory of substance abuse) DSM 5 DX - DSM 5 DSM 5 Diagnosis: rule out substance-induced psychosis Rule out schizophrenia spectrum disorder Cannabis abuse rule out delirium - Recommended/Plan of Treatment Treatment Recommendations and Plan of Treatment: milieu, structure, supportive therapy Zyprexa Zydis 5 mg at the morning time and at the nighttime for psychosis Patient was seen by medical team, labs are improving social media manager evaluation Patient submitted 48 hour notice requesting to be discharged and will be dropped tomorrow Patient was educated about potential discharge AGAINST MEDICAL ADVICE patient verbalize understanding at present moment patient does not meet the criteria for involuntary commitment for screening Most likely patient will be discharged AGAINST MEDICAL ADVICE tomorrow Patient was educated about potential delirium patient was educated to hydrate himself well, patient also was educated not to take any supplements for weightlifting. Projected ELOS: 5 days Prognosis: fair Discharge Plan and Discharge Criteria: Pt will be not depressed or manic, will be more hopeful, will be not psychotic or anxious, will be not having thoughts of harming self or others, will be tolerating medications well, will not have major side effects, will be able to function, will not pose threat to self or others. - Smoking Cessation Smoking Cessation Initiated: No Reason for not providing: patient denied smoking
--- NOTE | 2017-01-26 18:32 | US ---
PROCEDURE: Right lower extremity venous US HISTORY: Leg pain and swelling. Evaluate for DVT. PHYSICIAN(S): Grant Walker M.D. TECHNIQUE: Duplex sonography and color-flow Doppler with graded compression were used to evaluate the deep venous system of the right lower extremity. FINDINGS: The visualized deep venous system of the right lower extremity is sonographically normal and compressible. Normal waveforms and augmentation are seen. There is no sonographic evidence for deep venous thrombosis in the visualized segments of the right lower extremity. IMPRESSION: 1. No sonographic evidence for deep venous thrombosis in the visualized segments of the right lower extremity.
[2017-01-27 06:33] VITALS: BP 102/88; PULSE 76; TEMP 97.6
[2017-01-27] MEDS: OLANZapine 5 mg Disintegrating Tab PO SCH (09:46)
--- NOTE | 2017-01-27 17:37 | PCM.PYCHDC ---
Mental Status Examination - Mental Status Examination Orientation: Person, Place, Situation, Time Memory: Intact Mood: Neutral Affect: Constricted Attention: WNL Concentration: WNL (improved) Association: Loose (much improvement) Fund of Knowledge: WNL Formal Thought Process: Other (thought processes still disorganized, but much improved) Description of patient's judgement and insight: Pt has improved insight into mental and medical illness, pt was compliant with medications and unit rules and regulations, pt was going to groups, was calm, cooperative, socially appropriate, no behavioral incidents, no agitation, no aggression. Psychotic Thoughts and Behaviors: Pt denied v/a/t hallucinations, denied paranoid ideations, pt does not appear to be psychotic, and thought process is goal directed. Suicidal Ideation: No Current Homicidal Ideation?: No Plan: pt adamantly denied thoughts of harming self or others denied intent or plan. Discharge Summary - Discharge Note Reason for Hospitalization: patient was transferred from the medical floor for evaluation and stabilization of disorganized thoughts and disorganized behavior,, please see my initial consultation note for more detailed information. Psychiatric History (includes Medical, Family, Personal Hx): see HPI Laboratory Data: Abnormal Lab Results 01/26/17 07:15 RPR Nonreactive Consultations:: List each consultation separately and include: 1. Reason for request. 2. Findings. 3. Follow-up Consultations: medical consult appreciated, please see notes for more detailed information Summary of Hospital Course include:: 1. Description of specific treatment plan utilized for patients during their course of treatmen. 2. Summarize the time- course for resolution of acute symptoms and/or regressed behaviors. 3. Describe issues identified and worked on during hospitalization. 4. Describe medication utilized. 5. Describe medical problems identified and treated. 6. Reassessment of suicide risk Summary of Hospital Course: shortly patient is a 36 year old male with a PMHx of substance abuse and psychosis, 1 previous psychiatric admission in to this facility in [address] Robles's services, patient was [place] in [place] [place] initially patient was admitted on the medical floor for rhabdomyolysis, patient was seen by this typewriter repairer as a healthcare market consultant, patient was found to be disorganized in his thoughts and behavior, was offered to admission , patient needs further evaluation and stabilization, medication initiation and titration, close observation. at the time of initial evaluation on med floor pt had impression that someone was poisoning him, also patient had impression that somebody is monitoring team and and controlling him and making his body to move inappropriately. Patient also was not able to concentrate during the interview, has poor insight, was giggling inappropriately, thought process was circumstantial and tangential. Patient was seen initially at treatment team meeting room, patient presented to have good ADLs, fear personal hygiene. Patient lost older than his chronological age, very tanned, patient was pleasant and corporative,at the same time patient still has disorganized thoughts and behavior but at the same time with much improvement. Patient's insight is improving, but patient signed 48 hour notice requesting to be discharged. Patient has no clear explanation of what he was doing in [facility] besides "someone was poisoning me", pt said he was taking some supplements "for weight lifting", "I have history of using drugs and when you use drugs you expect to have something like hallucinations, but when you are not using them and have hallucinations it could be scarry", pt said he was not using any drugs, has no clear explanation why UDS was positive for cannabis, pt seems to be unreliable historian. obviously pt is improving, taking meds. patient denied being depressed, denied thoughts of harming himself or others, denied hearing voices, denied seeing things, was still patient has thought process to be disorganized, patient still delusional. Patient denied feeling anxious, denied history or being abused, denied using drugs, denied smoking, denied alcohol use. Medical history: Patient has rhabdomyolysis, improving, was cleared by medical team. Past psychiatric history: Patient has 1 admission to this facility psychiatric inpatient units in [address] as this admission. Patient has history of substance abuse and psychotic symptoms in the past.patient was on Risperdal before, patient reported that he doesn't want to be on Risperdal it any longer wants to continue Zyprexa. Family Hx: no fam hx reported social history: Patient works in the [employer]. 01/26/17 08:10 01/26/17 08:10 Lab Results 01/26/17 08:10: Sodium 140, Potassium 3.9, Chloride 99, Carbon Dioxide 35 H, Anion Gap 10, BUN 9, Creatinine 0.7, Est GFR ( Amer) > 60, Est GFR (Non- Af Amer) > 60, Random Glucose 94, Calcium 9.1, Total Bilirubin 0.5, AST 67 H, ALT 170 H, Alkaline Phosphatase 57, Total Protein 6.4, Albumin 3.4, Globulin 3.0 , Albumin/Globulin Ratio 1.1 01/26/17 08:10: WBC 6.4, RBC 4.38, Hgb 13.9 L, Hct 40.9 L, MCV 93.4, MCH 31.7, MCHC 34.0, RDW 13.3, Plt Count 229, MPV 10.4, Gran % 51.3, Lymph % (Auto) 33.4, [place] % (Auto) 9.3 H, Eos % (Auto) 5.5 H, Baso % (Auto) 0.5, Gran # 3.27, Lymph # 2.1, [place] # 0.6, Eos # 0.4, Baso # 0.03 01/26/17 07:15: Triglycerides 98, Cholesterol 116 L, LDL Cholesterol Direct 50, HDL Cholesterol 45 01/26/17 07:15: Free T4 1.04, TSH 3rd Generation 1.77 01/26/17 07:00: Total Creatine Kinase 456 H, CK-MB (CK-2) 6.3 H, CK-MB (CK-2) % 1.4 L Vital Signs Temp Pulse Pulse Resp BP 01/26/17 07:38 97.5 F L 62 20 99/66 L 01/25/17 19:05 72 20 01/25/17 19:01 72 patient tolerates medications well, no side effects observed or reported, aims 0 , no EPS patient submitted 48 hour notice yesterday and today it's going to be . Patient was offered to [place] 48 hour notice but patient declined that offer, patient wanted to be discharged as soon as possible. 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 Patient still has some thought process to be disorganized, but with much improvement. At present moment patient might improve further and benefits from further hospitalization, but at the same time [facility]. Patient gave permission to speak to his girlfriend Libby [phone], collaterals appreciated, from Libby standpoint he is doing much better, no concerns, at the same time for the past couple weeks patient was acting strangely, was feeling that police is after him, and FBI is monitoring him. Libby was educated about medications, potential diagnosis, and follow-up appointment, she was appreciated. At the time of discharge patient deemed to be not in danger to self or others patient was educated to follow-up with outpatient psychiatrist at [facility], take medication as prescribed, patient will be discharged AGAINST MEDICAL ADVICE. patient was stabilized on Zyprexa 5 mg twice a day for psychotic symptoms. Over the course of this hospitalization pt was attending groups, pt also had medication management, had therapeutic milieu, no agitation, no aggression, patient was in good behavioral control. At the time of the discharge pt denied been depressed, denied thoughts of harming self or others, denied psychotic symptoms, and pt does not appeared to be psychotic, denied been anxious, was considered to pose no threat to self or others, will be following up at [facility], information about follow up appointment, time and address provided to the pt, it is patient responsibility to follow up with outpatient clinic, PMD as well as specialists (see note for more detailed information). In case pt will need to obtain results of studies pending at discharge pt was provided with contact information of Psychiatric Inpatient unit [phone] as well as Medical Record Department [phone]. Counseling about smoking and alcohol cessation provided AA meetings treatment program information was provided by the pt was provided with prescriptions for all of medications (please see medication reconciliation form) Pt was educated about safety plan in case of worsening of symptoms or in case of suicidal or homicidal ideation call 911 or go to the nearest ER, also was educated to take meds as prescribed and stay away from drugs, pt verbalized understanding. - Diagnosis (1) Unspecified psychosis Status: Acute (2) Substance-induced psychotic disorder with hallucinations Status: Acute (3) Substance-induced psychotic disorder with delusions Status: Acute - Final Diagnosis (DSM 5) Condition upon Discharge: GOOD Disposition: AGAINST MEDICAL ADVICE Follow-up Treatment Plan: At the time of the discharge pt denied been depressed, denied thoughts of harming self or others, denied psychotic symptoms, and pt does not appeared to be psychotic, denied been anxious, was considered to pose no threat to self or others, will be following up at [facility], information about follow up appointment, time and address provided to the pt, it is patient responsibility to follow up with outpatient clinic, PMD as well as specialists (see note for more detailed information). In case pt will need to obtain results of studies pending at discharge pt was provided with contact information of Psychiatric Inpatient unit [phone] as well as Medical Record Department [phone]. Counseling about smoking and alcohol cessation provided AA meetings treatment program information was provided by the pt was provided with prescriptions for all of medications (please see medication reconciliation form) Pt was educated about safety plan in case of worsening of symptoms or in case of suicidal or homicidal ideation call 911 or go to the nearest ER, also was educated to take meds as prescribed and stay away from drugs, pt verbalized understanding. Prescriptions/Medication Reconciliation: OLANZapine [Zyprexa Zydis] 5 mg PO AMHS #30 odt - Smoking Cessation Smoking Cessation Medication prescribed: No Reason for not providing: patient denied smoking - Antipsychotic Medications Pt discharged on 2 or more routine antipsychotic medications: No
== END 2017-01-27 13:06 | disposition left against medical advice (07) | DRG 894 ==
LOC: PSYC 18:00
PROVIDERS: ADMIT Psychiatry & Neurology Psychiatry; ATTEND Psychiatry & Neurology Psychiatry
DX: F19.151 Other psychoactive substance abuse with psychoactive substance-induced psychotic disorder with hallucinations (principal); M62.82 Rhabdomyolysis; F19.150 Other psychoactive substance abuse with psychoactive substance-induced psychotic disorder with delusions; M79.669 Pain in unspecified lower leg

== ENCOUNTER 2017-04-12 16:24 | Inpatient (IN) | payer MEDICAID, OTHER ==
[2017-04-12 16:31] VITALS: BMI 25.0
[2017-04-12 16:36] VITALS: O2SAT 99
[2017-04-12 17:20] LABS: BASO # 0.05 K/mm3 (0.0-2.0); BASO % 0.6 % (0.0-3.0); EOS # 0.2 (0.0-0.7); EOS % 1.8 % (1.5-5.0); GRAN # 4.93 (1.4-6.5); GRAN % 58.7 % (50.0-68.0); HEMOGLOBIN 14.6 gm/dL (14.0-18.0); LYMPH # 2.6 (1.2-3.4); LYMPH % 30.9 % (22.0-35.0); MEAN CELL VOLUME 90.7 fL (80.0-105.0); MEAN CORPUSCULAR HEMOGLOBIN 31.6 pg (25.0-35.0); MEAN CORPUSCULAR HGB CONC 34.8 g/dl (31.0-37.0); MONO # 0.7 (0.1-0.6); PLATELET COUNT 171 10^3/uL (120.0-450.0); RBC 4.62 10^6/uL (3.5-6.1); RED CELL DISTRIBUTION WIDTH 12.2 % (11.5-14.5); SALICYLATE < 1 mg/dL (2.0-20.0); WHITE BLOOD COUNT 8.4 10^3/ul (4.5-11.0)
[2017-04-12 17:22] LABS: ALB/GLOB RATIO 1.4 (1.1-1.8); ALT/SGPT 45 U/L (7-56); AST/SGOT 35 U/L (15-59); BLOOD UREA NITROGEN 26 mg/dL (7-21); CALCIUM 9.3 mg/dL (8.4-10.5); GFR AFRICAN-AMERICAN > 60; GFR NON-AFRICAN AMERICAN > 60
[2017-04-12 17:34] LABS: ACETAMINOPHEN < 10.0 ug/ml (10.0-20.0)
--- NOTE | 2017-04-12 17:35 | ED PDOC ---
Arrival/HPI - General Chief Complaint: Medical Clearance Time Seen by Provider: 04/12/17 16:26 Historian: Patient - History of Present Illness Narrative History of Present Illness (Text): 04/12/17 17:22 36-year-old male presents today brought in by his boss for "acting strange". Patient's mom states the patient just hasn't been acting right while at work today. Patient states he just doesn't feel right. States he's been noncompliant with his medications. Patient denies hearing voices or seeing things. Patient states his head is just not right. He denies chest pain or shortness of breath. No vomiting or diarrhea. No abdominal pain. No dizziness or weakness. Patient states he was supposed to get a refill of his psychiatric medications but he did not. Symptom Onset: Gradual Past Medical History - Provider Review Nursing Documentation Reviewed: Yes - Travel History Have you recently traveled outside [place] w/in the past 3 mons?: No - Infectious Disease Hx of Infectious Diseases: None - Tetanus Immunization Tetanus Immunization: Unknown - Past Medical History Past Medical History: No Previous - Cardiac Hx Cardiac Disorders: No Hx Hypertension: No - Pulmonary Hx Respiratory Disorders: No - Neurological HX Cerebrovascular Accident: No Hx Seizures: No - Hematological/Oncological Hx Cancer: No - Musculoskeletal/Rheumatological Hx Falls: No - Gastrointestinal Hx Gastrointestinal Disorders: No - Genitourinary/Gynecological Hx Genitourinary Disorders: Yes (urinary retention 2014) - Psychiatric Hx Psychophysiologic Disorder: Yes Hx Schizophrenia: Yes Hx Substance Use: Yes (Marijuana) - Past Surgical History Past Surgical History: No Previous - Anesthesia Hx Anesthesia: No - Suicidal Assessment Feels Threatened In Home Enviroment: No Family/Social History - Physician Review Nursing Documentation Reviewed: Yes Family/Social History: Unknown Family HX Smoking Status: Former Smoker Hx Alcohol Use: Yes Hx Substance Use: Yes (Marijuana) Hx Substance Use Treatment: No Allergies/Home Meds Allergies/Adverse Reactions: Allergies No Known Allergies Allergy (Verified 04/12/17 16:31) Home Medications: Home Meds Medication Instructions Recorded Confirmed No Known Home Med 04/12/17 04/12/17 Review of Systems - Review of Systems Constitutional: absent: Fatigue, Fevers Respiratory: absent: SOB, Cough Cardiovascular: absent: Chest Pain, Palpitations Gastrointestinal: absent: Abdominal Pain, Nausea, Vomiting Genitourinary Male: absent: Dysuria, Frequency, Hematuria Musculoskeletal: absent: Arthralgias, Back Pain, Neck Pain Skin: absent: Rash, Pruritis Neurological: absent: Headache, Dizziness, Focal Weakness Psychiatric: absent: Suicidal Ideation Physical Exam Vital Signs Reviewed: Yes Vital Signs Temp Pulse Resp BP Pulse Ox 04/12/17 20:00 63 18 124/75 99 04/12/17 17:44 66 18 126/79 99 04/12/17 16:34 98.5 F 69 19 128/84 99 Temperature: Afebrile Blood Pressure: Normal Pulse: Regular Respiratory Rate: Normal Appearance: Positive for: Well-Appearing, Non-Toxic, Comfortable Pain Distress: None Mental Status: Positive for: Alert and Oriented X 3 - Systems Exam Head: Present: Atraumatic Mouth: Present: Moist Mucous Membranes Neck: Present: Normal Range of Motion Respiratory/Chest: Present: Clear to Auscultation, Good Air Exchange. No: Respiratory Distress, Accessory Muscle Use Cardiovascular: Present: Regular Rate and Rhythm, Normal S1, S2. No: Murmurs Abdomen: No: Tenderness Upper Extremity: Present: Normal ROM Lower Extremity: Present: Normal ROM Neurological: Present: GCS=15, Speech Normal Skin: Present: Warm, Dry, Normal Color. No: Rashes Psychiatric: Present: Alert, Oriented x 3 Medical Decision Making ED Course and Treatment: 04/12/17 17:35 Patient is nontoxic well-appearing in no distress vital signs are stable. CBC WNL CMP bun; 26/cr; 0.7 Tylenol WNL Salicylate WNL Alcohol level WNL CKP: wnl Urine drug screen wnl UA; wnl cxr: wnl ekg: NSR at 64bpm no st elevations normal axis normal intervals. pt is medically cleared for PES evaluation, admission and/or transfer. Patient was seen and evaluated by PES screener: soraida. patient signed for voluntary admission to the psychiatric floor Impression: Psychosis Admitted to behavioral health floor; dr. brooks - Lab Interpretations Lab Results: 04/12/17 16:54 04/12/17 16:54 Lab Results 04/12/17 17:39: Urine Opiates Screen Negative, Urine Methadone Screen Negative, Ur Barbiturates Screen Negative, Ur Phencyclidine Scrn Negative, Ur Amphetamines Screen Negative, U Benzodiazepines Scrn Negative, U Oth Cocaine Metabols Negative, U Cannabinoids Screen Negative 04/12/17 17:39: Urine Color Yellow, Urine Appearance Clear, Urine pH 7.0, Ur Specific [place] 1.020, Urine Protein Negative, Urine Glucose (UA) Negative, Urine Ketones Negative, Urine Blood Negative, Urine Nitrate Negative, Urine Bilirubin Negative, Urine Urobilinogen 1.0 H, Ur Leukocyte Esterase Negative 04/12/17 16:54: WBC 8.4 D, RBC 4.62, Hgb 14.6, Hct 41.9 L, MCV 90.7, MCH 31.6, MCHC 34.8, RDW 12.2, Plt Count 171, MPV 10.0, Gran % 58.7, Lymph % (Auto) 30.9, [place] % (Auto) 8.0 H, Eos % (Auto) 1.8, Baso % (Auto) 0.6, Gran # 4.93, Lymph # 2.6, [place] # 0.7 H, Eos # 0.2, Baso # 0.05 04/12/17 16:54: Alcohol, Quantitative < 10 04/12/17 16:54: Salicylates < 1 L, Acetaminophen < 10.0 L 04/12/17 16:54: Sodium 137, Potassium 3.7, Chloride 101, Carbon Dioxide 27, Anion Gap 13, BUN 26 H, Creatinine 0.7, Est GFR ( Amer) > 60, Est GFR ( Non-Af Amer) > 60, Random Glucose 99, Calcium 9.3, Total Bilirubin 0.6, AST 35, ALT 45, Alkaline Phosphatase 65, Total Creatine Kinase 182, Total Protein 6.8, Albumin 4.0, Globulin 2.8, Albumin/Globulin Ratio 1.4 - RAD Interpretation Radiology Orders: 04/12/17 16:44 CHEST PORTABLE [RAD] Stat Disposition/Present on Arrival - Present on Arrival Any Indicators Present on Arrival: No History of DVT/PE: No History of Uncontrolled Diabetes: No Urinary Catheter: No History of Decub. Ulcer: No History Surgical Site Infection Following: None - Disposition Have Diagnosis and Disposition been Completed?: Yes Diagnosis: Unspecified psychosis Disposition: HOSPITALIZED Disposition Time: 20:32 Patient Plan: Admission Condition: FAIR Referrals: PCP,NO [Primary Care Provider] - Follow up with primary
[2017-04-12 18:11] LABS: URINE BILIRUBIN NEGATIVE (NEGATIVE); URINE BLOOD NEGATIVE (NEGATIVE); URINE GLUCOSE (UA) NEGATIVE (NEGATIVE); URINE LEUKOCYTE ESTERASE NEGATIVE Leu/uL (NEGATIVE); URINE NITRATE NEGATIVE (NEGATIVE); URINE PROTEIN NEGATIVE mg/dL (<30 mg/dL)
[2017-04-12 18:13] LABS: BARBITURATES, UR NEGATIVE (NEGATIVE); BENZODIAZEPINES, UR NEGATIVE (NEGATIVE); OPIATES, UR NEGATIVE (NEGATIVE); PHENCYCLIDINE, UR NEGATIVE (NEGATIVE); URINE APPEARANCE CLEAR (CLEAR); URINE COLOR YELLOW (YELLOW)
--- NOTE | 2017-04-12 19:42 | CARD ---
APPROVED REPORT EKG Measurement Heart [id number] <Conclusion> Normal sinus rhythm Normal ECG
[2017-04-12] MEDS ORDERED: Magnesium Hydroxide Susp 30 ml UD PO PRN (21:19)
[2017-04-12] MEDS ORDERED: Alum-Mag Hydrox-Simethicone Susp (30 mL) PO PRN (21:19)
[2017-04-12 22:57] VITALS: RESP 20
--- NOTE | 2017-04-13 00:47 | PCM.BM ---
<Lakeisha Savage - Last Filed: 04/13/17 00:48> Treatment Plan Problems - Problems identified on initial assessmt PSYCHOTIC BEHAVIOR Date Initiated: 04/12/17 Time Initiated: 22:00 Assessment reference: NA Status: Active MEDICATION NON COMPLIANCE Date Initiated: 04/12/17 Time Initiated: 22:00 Assessment reference: NA Status: Active Treatment assets and liabiliti Patient Assests: adapts well, cooperative, self-reliant, ADL independent, physically healthy, negotiates basic needs, cognitively intact Patient Liabilities: live alone, financial problems (historian, thought blocking..), poor support system - Milieu Protocol Maintain good personal hygiene: daily Encourage regular showers, daily Remind patient to perform daily oral care Conduct patient checks and document Observation sheet: Q15 minutes Maintain personal safety: every shift Educate patient to report safety concerns to staff, every shift Monitor environment for contraband/sharps Medication safety: Monitor for expected outcome, potential side effects: every shift, Assess barriers to learning: every shift, Assess readiness for medication education: every shift <Paula Ingram A - Last Filed: 04/14/17 16:19> - Diagnosis (1) Schizoaffective disorder Status: Acute Interventions: 04/13/17 15:04 Psychoeducation/psychotherapy Psychopharmacology/adjustment of medications as needed/ monitoring possible side effects Evaluate pt on daily basis Compliance with medications and follow up appointments Long acting medication if pt is noncompliant with pill form Suicide and homicide risk assessment and prevention, coping strategies, safety plan Relapse prevention Reduction of symptoms Improve functional status Possible assertive community treatment Cognitive behavioral therapy Family intervention Possible social skill training as outpatient <Jacquelyn De Souza - Last Filed: 04/17/17 08:41> Family Contact Family involvement: Family/SO is involved Family contact: Patient agrees to contact Family contact name: 2 - Goals for Treatment Patient goals for treatment: "To get my medication." Discharge/Continuing Care - Education Needs Education Needs: Family Medication, Family Diagnosis/Disease Process, Patient Medication, Patient Diagnosis/Disease Process, Patient Coping Skills, Patient Community resources, Significant Other Medication, Significant Other Diagnosis/ Disease Process - Discharge Discharge Criteria: Tolerates medication w/o severe side effects, Normal sleep pattern
--- NOTE | 2017-04-13 08:59 | RAD ---
HISTORY: pes eval COMPARISON: 01/23/2017 FINDINGS: LUNGS: No active pulmonary disease. PLEURA: No significant pleural effusion identified, no pneumothorax apparent. CARDIOVASCULAR: Normal. OSSEOUS STRUCTURES: No significant abnormalities. VISUALIZED UPPER ABDOMEN: Normal. OTHER FINDINGS: None. IMPRESSION: No active disease.
--- NOTE | 2017-04-13 15:03 | PCM.PSYCH ---
Initial Psychiatric Evaluation - Initial Psychiatric Evaluation Type of Admission: Voluntary Legal Status: Capacity (patient has capacity to sign consent for treatment) Chief Complaint (in patient's own words): "I don't want to be here, I quit drinking about 2 months ago, my body was fatigue, I was not eating or sleeping, I need to have insurance, I am waiting for beckie care, I came here to feel my prescriptions, then I wanted to run downstairs, I wanted to clean my place, here I am in clean room, my goal for treatment to get out of here...." (pt is disorganized, does not make much sense , circumstantial and tangential, answers were not related to the questions being asked). Patient's Reaction to Hospitalization: patient was admitted to psychiatric inpatient unit for evaluation and stabilization of psychosis, patient presented to be disorganized in his thoughts and behavior, was not compliant with the medications, History of Present Illness and Precipitating Events: shortly patient is 36 years old male, reported history or psychosis, most likely schizophrenia spectrum disorder, patient was brought in to the hospital by his boss because pt was acting "strange", in ED pt didn't want to stay in the hospital, but did not want to be screened by [facility] and reluctantly signed consent for the treatment. pt has h/o admission to this unit twice, 12/07-2014 under 's, second time 01/25/2017-01/27/2017 - under this public relations writer service. pt needs further evaluation and stabilization, meds resumption and titration. pt was seen today with SOFÍA Shelley, at the SOFÍA office, pt presented to have acceptable personal hygiene, good ADLs. pt presented to be disorganized in his thoughts, on the question what brought pt in to the hospital pt said: "I don't want to be here, I quit drinking about 2 months ago, my body was fatigue, I was not eating or sleeping, I need to have insurance, I am waiting for beckie care, I came here to feel my prescriptions, then I wanted to run downstairs, I wanted to clean my place, here I am in clean room, my goal for treatment to get out of here...." (pt is disorganized, does not make much sense , circumstantial and tangential, answers were not related to the questions being asked). pt seems to lose a lot of weight, pt said "I was trying to work out, I was not eating that much, I wanted to be in good shape" pt denied v/a/t hallucinations, denied paranoid ideation, but presented to be psychotic. pt denied smoking, denied using drugs, reported that he quit drinking alcohol two months ago. pt was noncompliant with medications, does not know why. past psych h/o: last admission in January 2017, pt was transferred from the medical floor where he was admitted for rhabdomyolisis ([place] pt was very psychotic, , pt also had feeling that "somebody is monitoring team and and controlling him and making his body to move inappropriately", pt also had fear that someone is poisoning him on the medical side. pt signed 48hr notice and was d/c AMA. Family Hx: pt said that his brother has bipolar and "he is taking depakote, I am not taking depakote". social history: Patient works in the [employer]. 04/12/17 16:54 04/12/17 16:54 Lab Results 04/12/17 17:39: Urine Opiates Screen Negative, Urine Methadone Screen Negative, Ur Barbiturates Screen Negative, Ur Phencyclidine Scrn Negative, Ur Amphetamines Screen Negative, U Benzodiazepines Scrn Negative, U Oth Cocaine Metabols Negative, U Cannabinoids Screen Negative 04/12/17 17:39: Urine Color Yellow, Urine Appearance Clear, Urine pH 7.0, Ur Specific [place] 1.020, Urine Protein Negative, Urine Glucose (UA) Negative, Urine Ketones Negative, Urine Blood Negative, Urine Nitrate Negative, Urine Bilirubin Negative, Urine Urobilinogen 1.0 H, Ur Leukocyte Esterase Negative 04/12/17 16:54: WBC 8.4 D, RBC 4.62, Hgb 14.6, Hct 41.9 L, MCV 90.7, MCH 31.6, MCHC 34.8, RDW 12.2, Plt Count 171, MPV 10.0, Gran % 58.7, Lymph % (Auto) 30.9, [place] % (Auto) 8.0 H, Eos % (Auto) 1.8, Baso % (Auto) 0.6, Gran # 4.93, Lymph # 2.6, [place] # 0.7 H, Eos # 0.2, Baso # 0.05 04/12/17 16:54: Alcohol, Quantitative < 10 04/12/17 16:54: Salicylates < 1 L, Acetaminophen < 10.0 L 04/12/17 16:54: Sodium 137, Potassium 3.7, Chloride 101, Carbon Dioxide 27, Anion Gap 13, BUN 26 H, Creatinine 0.7, Est GFR ( Amer) > 60, Est GFR ( Non-Af Amer) > 60, Random Glucose 99, Calcium 9.3, Total Bilirubin 0.6, AST 35, ALT 45, Alkaline Phosphatase 65, Total Creatine Kinase 182, Total Protein 6.8, Albumin 4.0, Globulin 2.8, Albumin/Globulin Ratio 1.4 Vital Signs Temp Pulse Pulse Resp BP Pulse Ox 04/13/17 07:15 98.3 F 50 L 20 104/59 L 04/12/17 22:00 80 20 04/12/17 20:00 63 18 124/75 99 04/12/17 17:44 66 18 126/79 99 04/12/17 16:34 98.5 F 69 19 128/84 99 Current Medications: Active Medications Generic Name Dose Route Start Last Admin Trade Name Freq PRN Reason Stop Dose Admin Acetaminophen 650 mg 04/12/17 21:19 Tylenol 325mg Tab PO Q4H PRN Pain, Mild (1-3) Al Hydrox/Mg Hydrox/Simethicone 30 ml 04/12/17 21:19 Maalox Plus 30 Ml PO DAILY PRN Upset Stomach Magnesium Hydroxide 30 ml 04/12/17 21:19 Milk Of Magnesia PO DAILY PRN Constipation Olanzapine 5 mg 04/12/17 22:00 04/12/17 21:44 Zyprexa PO 5 mg HS REBECA Administration Protocol Zaleplon 5 mg 04/12/17 21:19 04/12/17 21:44 Sonata PO 5 mg HS PRN Administration Insomnia Past Psychiatric History - Past Psychiatric History Previous Treatment History: Inpatient Prior Professional Help: see HPI Prior Psychiatric Treatment: see HPI At what hospital: see HPI Duration: see HPI Nature of Treatment: see HPI Explanation of prior treatment: see HPI History of Abuse: see HPI History of ETOH/Drug Use: see HPI History of Family Illness: see HPI Pertinent Medical Hx (Current Medical&Sleep Prob, Allergies): Allergies Allergy/AdvReac Type Severity Reaction Status Date / Time No Known Allergies Allergy Verified 04/12/17 23:02 No Known Home Med 04/12/17 Review of Systems - Review of Systems Systems not reviewed;Unavailable: Acuity of Condition - EENT Eyes: As Per HPI Ears: As Per HPI Nose/Mouth/Throat: As Per HPI - Cardiovascular Cardiovascular: As Per HPI - Respiratory Respiratory: As Per HPI - Gastrointestinal Gastrointestinal: As Per HPI - Genitourinary Genitourinary: As Per HPI - Reproductive: Male Reproductive:Male: As Per HPI - Musculoskeletal Musculoskeletal: As Par HPI - Integumentary Integumentary: As Per HPI - Neurological Neurological: As Per HPI - Psychiatric Psychiatric: As Per HPI - Endocrine Endocrine: As Per HPI - Hematologic/Lymphatic Hematologic: As Per HPI Mental Status Examination - Personal Presentation Personal Presentation: Looks stated age - Affect Affect: Constricted, Flat - Motor Activity Motor Activity: Calm - Reliability in Providing Information Reliability in Providing Information: Poor, due to alteration in thoughts - Speech Speech: Disorganized, Irrelevant - Mood Mood: Other ("I don't want to be here") - Formal Thought Process Formal Thought Process: Hallucinations, Delusions, Paranoia, Loosening of associations, Circumstantial - Obsessions/Compulsions Obsessions: None Compulsions: None - Cognitive Functions Orientation: Person, Place Sensorium: Alert Attention/Concentration: Easily distracted Abstract Thinking: O'Brien Estimate of Intelligence: Below average - Risk Risk: Diminished functioning - Strength & Assets Inventory Strength & Assets Inventory: Family support, Employment history - Limitations Limitations: Other (noncompliance) DSM 5 DX - DSM 5 DSM 5 Diagnosis: r/o schizoaffective, bipolar type r/o bipolar with psychosis - Recommended/Plan of Treatment Treatment Recommendations and Plan of Treatment: milieu, structure, supportive therapy Zyprexa Zydis 5 mg at the morning time and at the nighttime for psychosis medical team evaluation oncology social worker evaluation Patient submitted 48 hour notice requesting to be discharged will initiate screening at am family involvement will monitor closely Projected ELOS: 7days Prognosis: guarded Discharge Plan and Discharge Criteria: Pt will be not depressed or manic, will be more hopeful, will be not psychotic or anxious, will be not having thoughts of harming self or others, will be tolerating medications well, will not have major side effects, will be able to function, will not pose threat to self or others. - Smoking Cessation Smoking Cessation Initiated: No Reason for not providing: denied smoking
[2017-04-14 07:28] VITALS: BP 102/70
--- NOTE | 2017-04-14 10:00 | CP.PCM.HP ---
<Dariana Palmer - Last Filed: 04/14/17 11:39> History of Present Illness - History of Present Illness History of Present Illness: This is a 36Y M with PMH of psychosis who said he came in for medication refill. He said he was at a club and decided to come here to get his medications. His thoughts are disorganized and denies having suicidal ideation, homicidal ideation, visual or auditory hallucination. He denies having any recent drug or alcohol use. When reviewed ED records, it is noted that patient was brought in by his boss for not acting right. Patient has had psych admissions in the past. He denies having any pain, CP, SOB, n/v/d, numbness/ tingling. PMH: Psychosis PSH: Denies Home meds: See MAR All: NKDA SH: Quit smoking 2 months ago (used to smoke 1ppd x ~10-15yrs), denies alcohol or drug use FH: Dad- from cirrhosis from alcoholism, HTN Present on Admission - Present on Admission Any Indicators Present on Admission: No Review of Systems - Constitutional Constitutional: absent: Chills, Fever - EENT Eyes: absent: Change in Vision Nose/Mouth/Throat: absent: Dysphagia, Odynophagia, Sore Throat - Cardiovascular Cardiovascular: absent: Chest Pain, Diaphoresis, Dyspnea - Respiratory Respiratory: absent: Cough, Dyspnea, Hemoptysis - Gastrointestinal Gastrointestinal: absent: Abdominal Pain, Change in Bowel Habits, Diarrhea, Dysphagia, Nausea, Vomiting - Genitourinary Genitourinary: absent: Dysuria, Hematuria - Musculoskeletal Musculoskeletal: absent: Myalgias, Numbness, Tingling - Integumentary Integumentary: absent: Change in Hair, Change in Nails - Neurological Neurological: absent: Burning Sensations, Dizziness, Numbness, Tingling, Tremor , Weakness - Psychiatric Psychiatric: absent: Anxiety, Auditory Hallucinations, Depression, Homicidal Ideation, Suicidal Ideation, Visual Hallucinations Past Patient History - Infectious Disease Hx of Infectious Diseases: None - Tetanus Immunizations Tetanus Immunization: Unknown - Past Social History Smoking Status: Former Smoker - CARDIAC Hx Cardiac Disorders: No Hx Hypertension: No - PULMONARY Hx Respiratory Disorders: No - NEUROLOGICAL HX Cerebrovascular Accident: No Hx Seizures: No - HEENT Hx HEENT Problems: No - RENAL Hx Chronic Kidney Disease: No - ENDOCRINE/METABOLIC Hx Endocrine Disorders: No - HEMATOLOGICAL/ONCOLOGICAL Hx Cancer: No - INTEGUMENTARY Hx Dermatological Problems: No - MUSCULOSKELETAL/RHEUMATOLOGICAL Hx Falls: No - GASTROINTESTINAL Hx Gastrointestinal Disorders: No - GENITOURINARY/GYNECOLOGICAL Hx Genitourinary Disorders: Yes (urinary retention 2014) - PSYCHIATRIC Hx Psychophysiologic Disorder: Yes Hx Schizophrenia: Yes Hx Substance Use: Yes (Marijuana) - SURGICAL HISTORY Hx Surgeries: No - ANESTHESIA Hx Anesthesia: No Meds Allergies/Adverse Reactions: Allergies Allergy/AdvReac Type Severity Reaction Status Date / Time No Known Allergies Allergy Verified 04/12/17 23:02 Physical Exam - Constitutional Appears: No Acute Distress - Head Exam Head Exam: ATRAUMATIC, NORMAL INSPECTION, NORMOCEPHALIC - Eye Exam Eye Exam: Normal appearance, PERRL Pupil Exam: NORMAL ACCOMODATION, PERRL - ENT Exam ENT Exam: Mucous Membranes Moist - Neck Exam Neck exam: Positive for: Normal Inspection - Respiratory Exam Respiratory Exam: Clear to Auscultation Bilateral, NORMAL BREATHING PATTERN. absent: Rales, Rhonchi, Wheezes - Cardiovascular Exam Cardiovascular Exam: REGULAR RHYTHM, +S1, +S2. absent: Gallop, Rubs, Systolic Murmur - GI/Abdominal Exam GI & Abdominal Exam: Normal Bowel Sounds, Soft. absent: Guarding, Rebound, Rigid, Tenderness - Extremities Exam Extremities exam: Positive for: normal inspection. Negative for: calf tenderness, pedal edema - Neurological Exam Neurological exam: Alert, CN II-XII Intact, Normal Gait, Oriented x3 - Psychiatric Exam Psychiatric exam: Normal Affect, Normal Mood - Skin Skin Exam: Dry, Intact, Normal Color, Warm Results - Vital Signs Recent Vital Signs: Last Vital Signs Temp 98.3 F 04/14/17 07:27 Pulse 52 L 04/14/17 07:27 Resp 20 04/14/17 07:27 BP 102/70 04/14/17 07:27 Pulse Ox 99 04/12/17 20:00 - Labs Result Diagrams: 04/12/17 16:54 04/12/17 16:54 Assessment & Plan - Assessment and Plan (Free Text) Assessment: This is a 36Y M with PMH psychosis admitted for disorganized thoughts and psychosis. Plan: 1. Psychosis - Continue medications as per psych (Olanzapine) - Ambien prn insomnia - all labs within normal limits - Will check TSH - Utox negative for drugs or alcohol Dispo: Continue management as per psychiatry Thank you for this consultation. Please reconsult if needed. Case seen, reviewed and discussed with attending. Kiera Palmer PGY1 - Date & Time Date: 04/14/17 Time: 11:47 <Bridgette Darnell - Last Filed: 04/14/17 16:40> Results - Vital Signs Recent Vital Signs: Last Vital Signs Temp 98.2 F 04/14/17 16:29 Pulse 70 04/14/17 16:29 Resp 20 04/14/17 07:27 BP 102/70 04/14/17 16:29 Pulse Ox 99 04/12/17 20:00 - Labs Result Diagrams: 04/12/17 16:54 04/12/17 16:54 Attending/Attestation - Attestation I have personally seen and examined this patient.: Yes I have fully participated in the care of the patient.: Yes I have reviewed all pertinent clinical information: Yes Notes (Text): I have seen and examined patient at bedside. Agree with the above note with the following additions/ exceptions: Briefly this is 36 year old male who came in for possible psychosis. He denies any medical complaints at this time. Reviewed detail history, vitals and labs. Tsh done 2 months ago was within normal limits. There is no need to repeat labs at this time. Manage as per psych. Thanks for providing us opportunity to take care of this patient. We will sign off at this time. Please reconsult if you have any questions. Dr Bridgette Darnell.
--- NOTE | 2017-04-14 16:24 | PCM.PYCHDC ---
Mental Status Examination - Mental Status Examination Orientation: Person, Place Memory: Impaired Mood: Neutral ("I'm fine") Affect: Constricted Speech: Appropriate (disorganized circumstantial and tangential thought process) Attention: Poor Concentration: Poor Association: Loose Fund of Knowledge: WNL Formal Thought Process: Delusions, Paranoia, Loosening of associations, Circumstantial Description of patient's judgement and insight: very limited Psychotic Thoughts and Behaviors: Patient presented to be disorganized in his thoughts but denied visual, auditory , tactile hallucinations. Suicidal Ideation: No Current Homicidal Ideation?: No Plan: pt adamantly denied thoughts of harming self or others denied intent or plan. Discharge Summary - Discharge Note Reason for Hospitalization: patient was admitted to psychiatric inpatient unit for evaluation and stabilization of psychosis, patient presented to be disorganized in his thoughts and behavior, was not compliant with the medications, Psychiatric History (includes Medical, Family, Personal Hx): see HPI Laboratory Data: 04/12/17 16:54 04/12/17 16:54 Lab Results 04/12/17 17:39: Urine Opiates Screen Negative, Urine Methadone Screen Negative, Ur Barbiturates Screen Negative, Ur Phencyclidine Scrn Negative, Ur Amphetamines Screen Negative, U Benzodiazepines Scrn Negative, U Oth Cocaine Metabols Negative, U Cannabinoids Screen Negative 04/12/17 17:39: Urine Color Yellow, Urine Appearance Clear, Urine pH 7.0, Ur Specific [place] 1.020, Urine Protein Negative, Urine Glucose (UA) Negative, Urine Ketones Negative, Urine Blood Negative, Urine Nitrate Negative, Urine Bilirubin Negative, Urine Urobilinogen 1.0 H, Ur Leukocyte Esterase Negative 04/12/17 16:54: WBC 8.4 D, RBC 4.62, Hgb 14.6, Hct 41.9 L, MCV 90.7, MCH 31.6, MCHC 34.8, RDW 12.2, Plt Count 171, MPV 10.0, Gran % 58.7, Lymph % (Auto) 30.9, [place] % (Auto) 8.0 H, Eos % (Auto) 1.8, Baso % (Auto) 0.6, Gran # 4.93, Lymph # 2.6, [place] # 0.7 H, Eos # 0.2, Baso # 0.05 04/12/17 16:54: Alcohol, Quantitative < 10 04/12/17 16:54: Salicylates < 1 L, Acetaminophen < 10.0 L 04/12/17 16:54: Sodium 137, Potassium 3.7, Chloride 101, Carbon Dioxide 27, Anion Gap 13, BUN 26 H, Creatinine 0.7, Est GFR ( Amer) > 60, Est GFR ( Non-Af Amer) > 60, Random Glucose 99, Calcium 9.3, Total Bilirubin 0.6, AST 35, ALT 45, Alkaline Phosphatase 65, Total Creatine Kinase 182, Total Protein 6.8, Albumin 4.0, Globulin 2.8, Albumin/Globulin Ratio 1.4 Vital Signs Temp Pulse Pulse Resp BP Pulse Ox 04/14/17 07:27 98.3 F 52 L 20 102/70 04/13/17 15:53 61 107/72 04/13/17 07:15 98.3 F 50 L 20 104/59 L 04/12/17 22:00 80 20 04/12/17 20:00 63 18 124/75 99 04/12/17 17:44 66 18 126/79 99 04/12/17 16:34 98.5 F 69 19 128/84 99 Consultations:: List each consultation separately and include: 1. Reason for request. 2. Findings. 3. Follow-up Consultations: patient was seen by medical team, see notes for more detailed information. Summary of Hospital Course include:: 1. Description of specific treatment plan utilized for patients during their course of treatmen. 2. Summarize the time- course for resolution of acute symptoms and/or regressed behaviors. 3. Describe issues identified and worked on during hospitalization. 4. Describe medication utilized. 5. Describe medical problems identified and treated. 6. Reassessment of suicide risk Summary of Hospital Course: shortly patient is 36 years old male, reported history or psychosis, most likely schizophrenia spectrum disorder, patient was brought in to the hospital by his boss because pt was acting "strange", in ED pt didn't want to stay in the hospital, but did not want to be screened by [facility] and reluctantly signed consent for the treatment. pt has h/o admission to this unit twice, 12/07-2014 under 's, second time 01/25/2017-01/27/2017 - under this sports book writer service. pt needs further evaluation and stabilization, meds resumption and titration. pt was seen today with SOFÍA Shelley, at the SOFÍA office, pt presented to have acceptable personal hygiene, good ADLs. pt presented to be disorganized in his thoughts, on the question what brought pt in to the hospital pt said: "I don't want to be here, I quit drinking about 2 months ago, my body was fatigue, I was not eating or sleeping, I need to have insurance, I am waiting for beckie care, I came here to feel my prescriptions, then I wanted to run downstairs, I wanted to clean my place, here I am in clean room, my goal for treatment to get out of here...." (pt is disorganized, does not make much sense , circumstantial and tangential, answers were not related to the questions being asked). pt seems to lose a lot of weight, pt said "I was trying to work out, I was not eating that much, I wanted to be in good shape" pt denied v/a/t hallucinations, denied paranoid ideation, but presented to be psychotic. pt denied smoking, denied using drugs, reported that he quit drinking alcohol two months ago. pt was noncompliant with medications, does not know why. past psych h/o: last admission in January 2017, pt was transferred from the medical floor where he was admitted for rhabdomyolisis ([place] pt was very psychotic, , pt also had feeling that "somebody is monitoring team and and controlling him and making his body to move inappropriately", pt also had fear that someone is poisoning him on the medical side. pt signed 48hr notice and was d/c AMA. Family Hx: pt said that his brother has bipolar and "he is taking depakote, I am not taking depakote". social history: Patient works in the [employer]. 04/12/17 16:54 04/12/17 16:54 Lab Results 04/12/17 17:39: Urine Opiates Screen Negative, Urine Methadone Screen Negative, Ur Barbiturates Screen Negative, Ur Phencyclidine Scrn Negative, Ur Amphetamines Screen Negative, U Benzodiazepines Scrn Negative, U Oth Cocaine Metabols Negative, U Cannabinoids Screen Negative 04/12/17 17:39: Urine Color Yellow, Urine Appearance Clear, Urine pH 7.0, Ur Specific [place] 1.020, Urine Protein Negative, Urine Glucose (UA) Negative, Urine Ketones Negative, Urine Blood Negative, Urine Nitrate Negative, Urine Bilirubin Negative, Urine Urobilinogen 1.0 H, Ur Leukocyte Esterase Negative 04/12/17 16:54: WBC 8.4 D, RBC 4.62, Hgb 14.6, Hct 41.9 L, MCV 90.7, MCH 31.6, MCHC 34.8, RDW 12.2, Plt Count 171, MPV 10.0, Gran % 58.7, Lymph % (Auto) 30.9, [place] % (Auto) 8.0 H, Eos % (Auto) 1.8, Baso % (Auto) 0.6, Gran # 4.93, Lymph # 2.6, [place] # 0.7 H, Eos # 0.2, Baso # 0.05 04/12/17 16:54: Alcohol, Quantitative < 10 04/12/17 16:54: Salicylates < 1 L, Acetaminophen < 10.0 L 04/12/17 16:54: Sodium 137, Potassium 3.7, Chloride 101, Carbon Dioxide 27, Anion Gap 13, BUN 26 H, Creatinine 0.7, Est GFR ( Amer) > 60, Est GFR ( Non-Af Amer) > 60, Random Glucose 99, Calcium 9.3, Total Bilirubin 0.6, AST 35, ALT 45, Alkaline Phosphatase 65, Total Creatine Kinase 182, Total Protein 6.8, Albumin 4.0, Globulin 2.8, Albumin/Globulin Ratio 1.4 Vital Signs Temp Pulse Pulse Resp BP Pulse Ox 04/13/17 07:15 98.3 F 50 L 20 104/59 L 04/12/17 22:00 80 20 04/12/17 20:00 63 18 124/75 99 04/12/17 17:44 66 18 126/79 99 04/12/17 16:34 98.5 F 69 19 128/84 99 patient submitted 48 hour notice, requested to be discharge, [facility] screening process initiated, patient was seen and evaluated by screening services, patient was found to be not committable, patient will be discharged AGAINST MEDICAL ADVICE. This sports book writer had no other options than to let patient go, patient was refusing to rescind 48 hour notice. at the time of discharge patient denied thoughts of harming himself or others, denied intent or plan, patient still psychotic, disorganized in his thoughts, but there is no aggression, no agitation, patient was socially appropriate. Pt was educated about safety plan in case of worsening of symptoms or in case of suicidal or homicidal ideation call 911 or go to the nearest ER, also was educated to take meds as prescribed and stay away from drugs, pt verbalized understanding. - Diagnosis (1) Schizoaffective disorder Current Visit: Yes Status: Acute - Final Diagnosis (DSM 5) Condition upon Discharge: FAIR DSM 5: patient submitted 48 hour notice, requested to be discharge, [facility] screening process initiated, patient was seen and evaluated by screening services, patient was found to be not committable, patient will be discharged AGAINST MEDICAL ADVICE. This sports book writer had no other options than to let patient go, patient was refusing to rescind 48 hour notice. at the time of discharge patient denied thoughts of harming himself or others, denied intent or plan, patient still psychotic, disorganized in his thoughts, but there is no aggression, no agitation, patient was socially appropriate. Pt was educated about safety plan in case of worsening of symptoms or in case of suicidal or homicidal ideation call 911 or go to the nearest ER, also was educated to take meds as prescribed and stay away from drugs, pt verbalized understanding. Disposition: AGAINST MEDICAL ADVICE Follow-up Treatment Plan: milieu, structure, supportive therapy Zyprexa Zydis 5 mg at the morning time and at the nighttime for psychosis medical team evaluation social media executive evaluation Patient submitted 48 hour notice requesting to be discharged will initiate screening at am family involvement will monitor closely - Smoking Cessation Smoking Cessation Medication prescribed: No Reason for not providing: patient denied smoking - Antipsychotic Medications Pt discharged on 2 or more routine antipsychotic medications: No
[2017-04-14 16:29] VITALS: PULSE 70; TEMP 98.2
== END 2017-04-14 16:30 | disposition left against medical advice (07) | DRG 885 ==
LOC: ED 16:24 → ERH 20:29 → PSYC 21:06
PROVIDERS: ADMIT Psychiatry & Neurology Psychiatry; ATTEND Psychiatry & Neurology Psychiatry
DX: F25.9 Schizoaffective disorder, unspecified (principal); Z91.14 Patient's other noncompliance with medication regimen; F12.90 Cannabis use, unspecified, uncomplicated; Z87.891 Personal history of nicotine dependence; Z82.49 Family history of ischemic heart disease and other diseases of the circulatory system; Z81.1 Family history of alcohol abuse and dependence; Z83.79 Family history of other diseases of the digestive system; G47.00 Insomnia, unspecified; K59.00 Constipation, unspecified

== ENCOUNTER 2018-04-04 23:16 | Observation (INO) | payer MEDICAID, OTHER ==
[2018-04-04 23:20] VITALS: BMI 23.1
--- NOTE | 2018-04-04 23:41 | ED PDOC ---
Arrival/HPI - General Chief Complaint: Shortness Of Breath Time Seen by Provider: 04/04/18 23:19 Historian: Patient - History of Present Illness Narrative History of Present Illness (Text): 04/04/18 23:41 Jf Hoyos is a 37 year old male, whose past medical history includes schizophrenia and psychosis, who presents to the Emergency department complaining of palpitations. Patient states [facility] when he began experiencing palpitations and ran to the ER for further evaluation. As per triage, patient reported he was 4-[address] a [address] home to [place] when he began feeling short of breath and drove back to come to the Emergency room. Patient denies any fever, chills, chest pain, shortness of breath, nausea, urinary symptoms, back pain, neck pain, headache, dizziness, suicidal/homicidal ideation or any other complaints. Symptom Onset: Gradual Symptom Course: Unchanged Activities at Onset: Light Context: Sitting Past Medical History - Provider Review Nursing Documentation Reviewed: Yes - Infectious Disease Hx of Infectious Diseases: None - Tetanus Immunization Tetanus Immunization: Unknown - Past Medical History Past Medical History: No Previous - Cardiac Hx Cardiac Disorders: No Hx Hypertension: No - Pulmonary Hx Respiratory Disorders: No - Neurological HX Cerebrovascular Accident: No Hx Seizures: No - HEENT Hx HEENT Disorder: No - Renal Hx Renal Disorder: No - Endocrine/Metabolic Hx Endocrine Disorders: No - Hematological/Oncological Hx Cancer: No - Integumentary Hx Dermatological Disorder: No - Musculoskeletal/Rheumatological Hx Falls: No - Gastrointestinal Hx Gastrointestinal Disorders: No - Genitourinary/Gynecological Hx Genitourinary Disorders: Yes (urinary retention 2014) - Psychiatric Hx Psychophysiologic Disorder: Yes Hx Schizophrenia: Yes Hx Substance Use: No (Past: Marijuana,adderall, coke) - Past Surgical History Past Surgical History: No Previous - Anesthesia Hx Anesthesia: No - Suicidal Assessment Feels Threatened In Home Enviroment: No Family/Social History - Physician Review Nursing Documentation Reviewed: Yes Family/Social History: Unknown Family HX Smoking Status: Former Smoker Hx Alcohol Use: Yes Hx Substance Use: No (Past: Marijuana,adderall, coke) Hx Substance Use Treatment: No Allergies/Home Meds Allergies/Adverse Reactions: Allergies No Known Allergies Allergy (Verified 04/04/18 23:24) Home Medications: Home Meds Medication Instructions Recorded Confirmed No Known Home Med 04/12/17 04/04/18 Review of Systems - Physician Review All systems were reviewed & negative as marked: Yes - Review of Systems Constitutional: Normal. absent: Fevers Eyes: Normal ENT: Normal Respiratory: Normal. absent: SOB, Cough Cardiovascular: Palpitations Gastrointestinal: Normal. absent: Abdominal Pain, Diarrhea, Nausea, Vomiting Genitourinary Male: Normal. absent: Dysuria, Frequency, Hematuria, Urinary Output Changes Musculoskeletal: Normal. absent: Back Pain, Neck Pain Skin: Normal. absent: Rash Neurological: Normal. absent: Headache, Dizziness Endocrine: Normal Hemo/Lymphatic: Normal Psychiatric: Normal Physical Exam Vital Signs Reviewed: Yes Vital Signs Temp Pulse Resp BP Pulse Ox 04/04/18 23:39 98.6 F 04/04/18 23:30 18 100 04/04/18 23:28 101 H 18 141/81 98 Temperature: Afebrile Blood Pressure: Normal Pulse: Regular Respiratory Rate: Normal Appearance: Positive for: Well-Appearing, Non-Toxic, Comfortable Pain Distress: None Mental Status: Positive for: Alert and Oriented X 3 - Systems Exam Head: Present: Atraumatic, Normocephalic Pupils: Present: PERRL Extroacular Muscles: Present: EOMI Conjunctiva: Present: Normal Mouth: Present: Moist Mucous Membranes Neck: Present: Normal Range of Motion Respiratory/Chest: Present: Clear to Auscultation, Good Air Exchange. No: Respiratory Distress, Accessory Muscle Use Cardiovascular: Present: Regular Rate and Rhythm, Normal S1, S2. No: Murmurs Abdomen: No: Tenderness, Distention, Peritoneal Signs Back: Present: Normal Inspection Upper Extremity: Present: Normal Inspection. No: Cyanosis, Edema Lower Extremity: Present: Normal Inspection. No: Edema Neurological: Present: GCS=15, CN II-XII Intact, Speech Normal Skin: Present: Warm, Dry, Normal Color. No: Rashes Psychiatric: Present: Alert, Oriented x 3, Normal Insight, Normal Concentration Medical Decision Making ED Course and Treatment: 04/04/18 23:41 Impression: 37 year old male complaining of palpitations. Plan: -- EKG -- Chest X-ray -- Labs, cardiac enzymes, alcohol level, D-dimer -- Urine drug screen -- Reassess and disposition Prior Visits: Notes and results from previous visits were reviewed. On 04/12/2017, pt was seen in the Emergency department for bizarre behavior. Pt was admitted to the hospital for further evaluation. Progress Notes: 04/05/18 00:18 Chest X-ray reviewed, shows no acute processes. 04/05/18 01:10 Reviewed EKG, NSR at 97 bpm. Prolonged QT. No acute changes. Case discussed with medical radiation therapist business applications analyst, who is aware and agrees with plan. 04/05/18 01:[address] Singh, who is aware and agrees with plan. Accepts pt in to hospitalist service. [facility] will go to [facility] observation rhabdomyolysis. - Lab Interpretations Lab Results: 04/04/18 23:37 04/04/18 23:37 Lab Results 04/05/18 00:13: Urine Color Yellow, Urine Appearance Clear, Urine pH 6.0, Ur Specific [place] >= 1.030, Urine Protein 30 H, Urine Glucose (UA) Negative, Urine Ketones 15 H, Urine Blood Small H, Urine Nitrate Negative, Urine Bilirubin Negative, Urine Urobilinogen 0.2, Ur Leukocyte Esterase Negative, Urine RBC 1 - 3, Urine WBC 0 - 2, Ur Epithelial Cells 0 - 2, Urine Bacteria Rare 04/05/18 00:13: Urine Opiates Screen Negative, Urine Methadone Screen Negative, Ur Barbiturates Screen Negative, Ur Phencyclidine Scrn Negative, Ur Amphetamines Screen Negative, U Benzodiazepines Scrn Negative, U Oth Cocaine Metabols Negative, U Cannabinoids Screen Positive H 04/04/18 23:37: Alcohol, Quantitative < 10 04/04/18 23:37: WBC 9.4, RBC 4.67, Hgb 14.9, Hct 41.7 L, MCV 89.3, MCH 31.9, MCHC 35.7, RDW 12.9, Plt Count 222, MPV 10.1 04/04/18 23:37: Sodium 145, Potassium 3.1 L, Chloride 103, Carbon Dioxide 20 L, Anion Gap 26 H, BUN 20, Creatinine 1.0, Est GFR ( Amer) > 60, Est GFR ( Non-Af Amer) > 60, Random Glucose 169 H, Calcium 9.7, Total Bilirubin 0.6, AST 162 H, ALT 58 H, Alkaline Phosphatase 77, Lactate Dehydrogenase 673, Total Creatine Kinase 2264 H, CK-MB (CK-2) 12.4 H, CK-MB (CK-2) % 0.5 L, Troponin I < 0.01, Total Protein 7.4, Albumin 4.7, Globulin 2.7, Albumin/Globulin Ratio 1.7 04/04/18 23:37: PT 11.8, INR 1.03, APTT 25.3, D-Dimer, Quantitative < 200 I have reviewed the lab results: Yes - RAD Interpretation Radiology Orders: 04/04/18 23:44 CHEST PORTABLE [RAD] Stat Proposal Engineer: ED Physician - Medication Orders Current Medication Orders: Acetaminophen (Tylenol 325mg Tab) 650 mg PO Q6H PRN PRN Reason: Pain, moderate (4-7) Enoxaparin Sodium (Lovenox) 40 mg SC DAILY REBECA PRN Reason: Protocol Sodium Chloride (Sodium Chloride 0.9%) 1,000 mls @ 150 mls/hr IV .Q6H40M REBECA Last Admin: 04/05/18 01:45 Dose: 150 mls/hr eMAR Start Stop Document 04/05/18 01:45 AD (Rec: 04/05/18 02:30 AD [id number] Intravenous Solution Start Date 04/05/18 Start Time 01:45 Pantoprazole Sodium (Protonix Ec Tab) 40 mg PO 0600 REBECA Discontinued Medications Sodium Chloride (Sodium Chloride 0.9%) 1,000 mls @ 999 mls/hr IV .Q1H1M STA Stop: 04/05/18 01:26 Last Admin: 04/05/18 00:30 Dose: 999 mls/hr eMAR Start Stop Document 04/05/18 00:30 AD (Rec: 04/05/18 01:17 AD [facility] [id number] Intravenous Solution Start Date 04/05/18 Start Time 01:17 Potassium Chloride (K-Dur 20 Meq Er Tab) 40 meq PO STAT STA Stop: 04/05/18 00:26 Last Admin: 04/05/18 01:17 Dose: 40 meq - Scribe Statement The provider has reviewed the documentation as recorded by the Scribryan Lucia All medical record entries made by the Scribe were at my direction and personally dictated by me. I have reviewed the chart and agree that the record accurately reflects my personal performance of the history, physical exam, medical decision making, and the department course for this patient. I have also personally directed, reviewed, and agree with the discharge instructions and disposition. Disposition/Present on Arrival - Present on Arrival Any Indicators Present on Arrival: No History of DVT/PE: No History of Uncontrolled Diabetes: No Urinary Catheter: No History of Decub. Ulcer: No History Surgical Site Infection Following: None - Disposition Have Diagnosis and Disposition been Completed?: Yes Diagnosis: Rhabdomyolysis, Hypokalemia Disposition: HOSPITALIZED Disposition Time: 01:27 Patient Plan: Observation Patient Problems: Current Active Problems Problem Status Onset Hypokalemia Acute Rhabdomyolysis Acute Condition: STABLE
[2018-04-04 23:59] LABS: HEMOGLOBIN 14.9 g/dL (14.0-18.0); MEAN CELL VOLUME 89.3 fl (80.0-105.0); MEAN CORPUSCULAR HEMOGLOBIN 31.9 pg (25.0-35.0); MEAN CORPUSCULAR HGB CONC 35.7 g/dl (31.0-37.0); MEAN PLATELET VOLUME 10.1 fl (7.0-11.0); RBC 4.67 10^6/uL (3.5-6.1); RED CELL DISTRIBUTION WIDTH 12.9 % (11.5-14.5); WHITE BLOOD COUNT 9.4 10^3/ul (4.5-11.0)
[2018-04-05 00:04] LABS: ALB/GLOB RATIO 1.7 (1.1-1.8); ALBUMIN 4.7 g/dL (3.0-4.8); ALT/SGPT 58 U/L (7-56); AST/SGOT 162 U/L (17-59); BLOOD UREA NITROGEN 20 mg/dL (7-21); CALCIUM 9.7 mg/dL (8.4-10.5); GFR AFRICAN-AMERICAN > 60; GFR NON-AFRICAN AMERICAN > 60
[2018-04-05 00:06] LABS: D DIMER < 200 ng/mL (0-243); INR 1.03 (0.93-1.08); PARTIAL THROMBOPLASTIN TIME 25.3 Seconds (25.1-36.5); PROTHROMBIN TIME 11.8 SECONDS (9.4-12.5)
[2018-04-05 00:15] LABS: TROPONIN I < 0.01 ng/mL
[2018-04-05] MEDS ORDERED: Potassium Chloride 20 mEq ER Tab PO STA (00:25)
[2018-04-05] MEDS ORDERED: Sodium Chloride 0.9% 1,000 ML IV STA (00:26)
[2018-04-05 00:47] LABS: BARBITURATES, UR NEGATIVE (NEGATIVE); BENZODIAZEPINES, UR NEGATIVE (NEGATIVE); OPIATES, UR NEGATIVE (NEGATIVE); PHENCYCLIDINE, UR NEGATIVE (NEGATIVE)
[2018-04-05 00:50] LABS: CK MB% 0.5 % (2.5-3.0); CK-MB 12.4 ng/mL (0.0-3.6)
[2018-04-05] MEDS ORDERED: Potassium Chloride 40 mEq/30 ml LIQ UD PO ONE ×2 (01:45→13:00)
[2018-04-05] MEDS ORDERED: Sodium Chloride 0.9% 1,000 ML IV SCH (01:45)
--- NOTE | 2018-04-05 01:55 | CP.PCM.HP ---
<Polo Sotelo - Last Filed: 04/05/18 02:15> History of Present Illness - History of Present Illness History of Present Illness: Polo Sotelo DO, PGY-1 Internal Medicine Resident Hospitalist Admission History and Physical for Dr. Singh CC: palpitations, dizziness HPI: Mr. Hoyos is a 37 year old male with PMH of Tourette syndrome, polysubstance abuse, schizophrenia, and psychosis who presented to ED with palpitations. He felt like his heart was beating out of his chest late last night after running on the street. He also admits that the room seemed to be spinning at the time but this has stopped since. He feels like he has a lot of energy right now and has not slept for the past two nights. He admits to using marijuana recently and admits to using other substances including cocaine and adderall in the past. He states that he would like help with his racing thoughts and feels like his mind is not right at this time. He denies suicidal or homicidal ideation but admits to these feelings in the past. He denies fever, chills, headache, blurry vision, chest pain, shortness of breath, nausea/vomiting/diarrhea, or urinary symptoms. He denies any recent trauma, getting into a fight, or any other events that may have lead to his palpitations. PMH: Tourette's, polysubstance abuse, schizophrenia PSH: none Allergies: NKDA Medications: patient denies taking any medications for psychotic symptoms. Fam Hx: denies Soc Hx: admits to 1 PPD smoking history. Admits to drinking alcohol regularly but stopped a week ago. Admits to recent marijuana use and past cocaine and adderall use. 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 Present on Admission - Present on Admission Any Indicators Present on Admission: No History of DVT/PE: No History of Uncontrolled Diabetes: No Urinary Catheter: No Decubitus Ulcer Present: No Review of Systems - Review of Systems Review of Systems: A 12 point ROS was reviewed with patient and negative except as stated in HPI and psychiatric ROS below - Psychiatric Psychiatric: Anxiety, Behavioral Changes, Difficulty Concentrating, Hallucinations, Mood Swings. absent: Homicidal Ideation, Suicidal Ideation Past Patient History - Infectious Disease Hx of Infectious Diseases: None - Tetanus Immunizations Tetanus Immunization: Unknown - Past Social History Smoking Status: Former Smoker - CARDIAC Hx Cardiac Disorders: No Hx Hypertension: No - PULMONARY Hx Respiratory Disorders: No - NEUROLOGICAL HX Cerebrovascular Accident: No Hx Seizures: No - HEENT Hx HEENT Problems: No - RENAL Hx Chronic Kidney Disease: No - ENDOCRINE/METABOLIC Hx Endocrine Disorders: No - HEMATOLOGICAL/ONCOLOGICAL Hx Cancer: No - INTEGUMENTARY Hx Dermatological Problems: No - MUSCULOSKELETAL/RHEUMATOLOGICAL Hx Falls: No - GASTROINTESTINAL Hx Gastrointestinal Disorders: No - GENITOURINARY/GYNECOLOGICAL Hx Genitourinary Disorders: Yes (urinary retention 2014) - PSYCHIATRIC Hx Psychophysiologic Disorder: Yes Hx Schizophrenia: Yes Hx Substance Use: No (Past: Marijuana,adderall, coke) - SURGICAL HISTORY Hx Surgeries: No - ANESTHESIA Hx Anesthesia: No Meds Allergies/Adverse Reactions: Allergies Allergy/AdvReac Type Severity Reaction Status Date / Time No Known Allergies Allergy Verified 04/04/18 23:24 Results - Vital Signs Recent Vital Signs: Last Vital Signs Temp 98.6 F 04/04/18 23:39 Pulse 101 H 04/04/18 23:28 Resp 18 04/04/18 23:28 BP 141/81 04/04/18 23:28 Pulse Ox 98 04/04/18 23:28 - Labs Result Diagrams: 04/04/18 23:37 04/04/18 23:37 Assessment & Plan - Assessment and Plan (Free Text) Assessment: Mr. Hoyos is a 37 year old male with PMH of Tourette syndrome, polysubstance abuse, schizophrenia, and psychosis admitted for rhabdomyolysis and psychiatric evaluation. 1. Rhabdomyolysis -Likely secondary to recent drug use -NS @ 150 cc/hr -Current BUN/Cr are stable -Will continue to monitor 2. Palpitations -Likely secondary to recent drug use vs mina -EKG in ED with prolonged QT -Will avoid QT prolonging medications for now -Repeat EKG as needed 3. Hypokalemia -Repleted with 40 mEq oral solution in ED 4. Manic symptoms -Likely secondary to underlying psychiatric disorder vs polysubstance abuse -Psychiatric consultation placed GI/DVT Prophylaxis: Protonix 40 and lovenox 40 sc Case and plan reviewed and discussed in detail with Dr. Singh attending. DO SALOME Zelaya Resident PGY-1 <Geno Singh - Last Filed: 04/05/18 02:38> Results - Vital Signs Recent Vital Signs: Last Vital Signs Temp 98.6 F 04/04/18 23:39 Pulse 101 H 04/04/18 23:28 Resp 18 04/04/18 23:28 BP 141/81 04/04/18 23:28 Pulse Ox 98 04/04/18 23:28 - Labs Result Diagrams: 04/04/18 23:37 04/04/18 23:37 Attending/Attestation - Attestation I have personally seen and examined this patient.: Yes I have fully participated in the care of the patient.: Yes I have reviewed all pertinent clinical information: Yes Notes (Text): 04/05/18 02:37 Patient was seen when he was in bed # 4 in the ER. Agree with history, physical examination, assessment and plan.
[2018-04-05 02:07] LABS: URINE BILIRUBIN NEGATIVE (NEGATIVE); URINE BLOOD SMALL (NEGATIVE); URINE GLUCOSE (UA) NEGATIVE (NEGATIVE); URINE LEUKOCYTE ESTERASE NEGATIVE Leu/uL (NEGATIVE); URINE PROTEIN 30 mg/dL (<30 mg/dL); URINE UROBILINOGEN 0.2 E.U./dL (<1 E.U./dL)
[2018-04-05 02:10] LABS: URINE APPEARANCE CLEAR (CLEAR); URINE COLOR YELLOW (YELLOW)
[2018-04-05 02:23] LABS: URINE BACTERIA RARE (NEG); URINE EPITHELIAL CELLS 0 - 2 /hpf (0-5); URINE WBC 0 - 2 /hpf (0-6)
[2018-04-05 03:11] VITALS: RESP 19
[2018-04-05] MEDS ORDERED: Pantoprazole 40 mg EC Tab PO SCH (06:00)
[2018-04-05 07:53] VITALS: BP 119/74; PULSE 54; TEMP 97.7; O2SAT 97
--- NOTE | 2018-04-05 08:03 | RAD ---
Date of service: 04/04/2018 HISTORY: palpitations COMPARISON: 04/12/2017 FINDINGS: LUNGS: No active pulmonary disease. PLEURA: No significant pleural effusion identified, no pneumothorax apparent. CARDIOVASCULAR: Normal. OSSEOUS STRUCTURES: No significant abnormalities. VISUALIZED UPPER ABDOMEN: Normal. OTHER FINDINGS: None. IMPRESSION: No active disease.
[2018-04-05 08:44] LABS: ALB/GLOB RATIO 1.5 (1.1-1.8); ALBUMIN 3.7 g/dL (3.0-4.8); ALT/SGPT 59 U/L (7-56); AST/SGOT 93 U/L (17-59); BLOOD UREA NITROGEN 13 mg/dL (7-21); CALCIUM 8.6 mg/dL (8.4-10.5); GFR AFRICAN-AMERICAN > 60; GFR NON-AFRICAN AMERICAN > 60
[2018-04-05 09:02] LABS: CK MB% 0.7 % (2.5-3.0); CK-MB 8.1 ng/mL (0.0-3.6)
[2018-04-05] MEDS ORDERED: Enoxaparin 40 mg Syringe SC SCH (10:00)
[2018-04-05] MEDS ORDERED: Potassium Chloride 40 mEq/30 ml LIQ UD PO STA (10:17)
--- NOTE | 2018-04-05 15:15 | CP.PCM.DIS ---
<Montez Man - Last Filed: 04/05/18 15:09> Provider - Provider Date of Admission: 04/05/18 01:25 Attending physician: Mandi Taylor MD Primary care physician: NO FAMILY PROVIDER Consults: Psychiatry - Paula Chandler Time Spent in preparation of Discharge (in minutes): 40 Diagnosis - Discharge Diagnosis (1) Rhabdomyolysis Status: Acute Priority: High (2) Hypokalemia Status: Acute Priority: Medium (3) Palpitations Status: Acute Priority: Medium Hospital Course - Lab Results Lab Results: Most Recent Lab Values WBC 9.4 10^3/ul (4.5-11.0) 04/04/18 23:37 RBC 4.67 10^6/uL (3.5-6.1) 04/04/18 23:37 Hgb 14.9 g/dL (14.0-18.0) 04/04/18 23:37 Hct 41.7 % (42.0-52.0) L 04/04/18 23:37 MCV 89.3 fl (80.0-105.0) 04/04/18 23:37 MCH 31.9 pg (25.0-35.0) 04/04/18 23:37 MCHC 35.7 g/dl (31.0-37.0) 04/04/18 23:37 RDW 12.9 % (11.5-14.5) 04/04/18 23:37 Plt Count 222 10^3/uL (120.0-450.0) 04/04/18 23:37 MPV 10.1 fl (7.0-11.0) 04/04/18 23:37 PT 11.8 SECONDS (9.4-12.5) 04/04/18 23:37 INR 1.03 (0.93-1.08) 04/04/18 23:37 APTT 25.3 Seconds (25.1-36.5) 04/04/18 23:37 D-Dimer, Quantitative < 200 ng/mL (0-243) 04/04/18 23:37 Sodium 142 mmol/L (132-148) 04/05/18 08:24 Potassium 3.3 mmol/L (3.6-5.0) L 04/05/18 08:24 Chloride 104 mmol/L (98-107) 04/05/18 08:24 Carbon Dioxide 29 mmol/L (21-33) 04/05/18 08:24 Anion Gap 12 (10-20) 04/05/18 08:24 BUN 13 mg/dL (7-21) 04/05/18 08:24 Creatinine 0.7 mg/dl (0.8-1.5) L 04/05/18 08:24 Est GFR ( Amer) > 60 04/05/18 08:24 Est GFR (Non-Af Amer) > 60 04/05/18 08:24 Random Glucose 102 mg/dL (70-110) 04/05/18 08:24 Calcium 8.6 mg/dL (8.4-10.5) 04/05/18 08:24 Phosphorus 3.3 mg/dL (2.5-4.5) 04/05/18 08:24 Magnesium 2.3 mg/dL (1.7-2.2) H 04/05/18 08:24 Total Bilirubin 0.8 mg/dL (0.2-1.3) 04/05/18 08:24 AST 93 U/L (17-59) H D 04/05/18 08:24 ALT 59 U/L (7-56) H 04/05/18 08:24 Alkaline Phosphatase 67 U/L (38-126) 04/05/18 08:24 Lactate Dehydrogenase 673 U/L (333-699) 04/04/18 23:37 Total Creatine Kinase 1177 U/L (35-230) H 04/05/18 08:24 CK-MB (CK-2) 8.1 ng/mL (0.0-3.6) H 04/05/18 08:24 CK-MB (CK-2) % 0.7 % (2.5-3.0) L 04/05/18 08:24 Troponin I < 0.01 ng/mL 04/04/18 23:37 Total Protein 6.2 g/dL (5.8-8.3) 04/05/18 08:24 Albumin 3.7 g/dL (3.0-4.8) 04/05/18 08:24 Globulin 2.5 gm/dL 04/05/18 08:24 Albumin/Globulin Ratio 1.5 (1.1-1.8) 04/05/18 08:24 Urine Color Yellow (YELLOW) 04/05/18 00:13 Urine Appearance Clear (CLEAR) 04/05/18 00:13 Urine pH 6.0 (4.7-8.0) 04/05/18 00:13 Ur Specific [place] >= 1.030 (1.005-1.035) 04/05/18 00:13 Urine Protein 30 mg/dL (<30 mg/dL) H 04/05/18 00:13 Urine Glucose (UA) Negative mg/dL (NEGATIVE) 04/05/18 00:13 Urine Ketones 15 mg/dL (NEGATIVE) H 04/05/18 00:13 Urine Blood Small (NEGATIVE) H 04/05/18 00:13 Urine Nitrate Negative (NEGATIVE) 04/05/18 00:13 Urine Bilirubin Negative (NEGATIVE) 04/05/18 00:13 Urine Urobilinogen 0.2 E.U./dL (<1 E.U./dL) 04/05/18 00:13 Ur Leukocyte Esterase Negative Rohan/uL (NEGATIVE) 04/05/18 00:13 Urine RBC 1 - 3 /hpf (0-2) 04/05/18 00:13 Urine WBC 0 - 2 /hpf (0-6) 04/05/18 00:13 Ur Epithelial Cells 0 - 2 /hpf (0-5) 04/05/18 00:13 Urine Bacteria Rare (NEG) 04/05/18 00:13 Urine Opiates Screen Negative (NEGATIVE) 04/05/18 00:13 Urine Methadone Screen Negative (NEGATIVE) 04/05/18 00:13 Ur Barbiturates Screen Negative (NEGATIVE) 04/05/18 00:13 Ur Phencyclidine Scrn Negative (NEGATIVE) 04/05/18 00:13 Ur Amphetamines Screen Negative (NEGATIVE) 04/05/18 00:13 U Benzodiazepines Scrn Negative (NEGATIVE) 04/05/18 00:13 U Oth Cocaine Metabols Negative (NEGATIVE) 04/05/18 00:13 U Cannabinoids Screen Positive (NEGATIVE) H 04/05/18 00:13 Alcohol, Quantitative < 10 mg/dL (0-10) 04/04/18 23:37 - Hospital Course Hospital Course: Montez Man D.O. PGY-1, Internal Medicine Infrastructure Technician, Discharge Summary 37 M w/ a PMH of Tourette's syndrome, polysubstance abuse, schizophrenia, and psychosis admitted for rhabdomyolysis and psychiatric evaluation. Pt. was admitted on 04/04/18 w/ CC of palpitations, and manic like symptoms c/o of high energy and racing thoughts with associated palpitations. Admitted to past abuse of cocaine and aderrall, and stated that he felt like his heart was beating out of his chest night prior to admission after running. Upon evaluation in ED EKG was read as NSR w/ prolonged QT and CXR was read as no active disease. Utox in ED was positive for cannabinoids, and UA positive for small blood, high protein. Lab studies revealed CK of 2264, with mild hypokalemia, and mild transaminitis. Creatinine was wnl. Pt was subsequently admitted for management of rhabdomyolysis, psychiatric evaluation and hypokalemia. Patient was started on IVF. Patient also received repletion of KCl for hypokalemia. Patient was seen by psychiatry and was cleared as he had no SI or HI. Patient's CPK improved the next day and overall he only experienced some residual muscle aches. Patient was seen and examined at bedside today and is doing better. Patient is stable for discharge with clear instructions to increase his PO water intake and will also be given a follow up appt in the [facility] clinic as well as supplemental KCl for a few days. Patient verbalized understanding and agreement with aforementioned plan. - Date & Time of H&P Date of H&P: 04/05/18 Time of H&P: 15:00 Discharge Exam - Head Exam Head Exam: ATRAUMATIC, NORMOCEPHALIC - Eye Exam Eye Exam: EOMI, PERRL. absent: Scleral icterus - ENT Exam ENT Exam: Mucous Membranes Moist, Normal Exam - Neck Exam Neck exam: Normal Inspection - Respiratory Exam Respiratory Exam: Clear to PA & Lateral. absent: Rales, Rhonchi, Wheezes - Cardiovascular Exam Cardiovascular Exam: RRR, +S1, +S2. absent: Gallop, Rubs, Systolic Murmur - GI/Abdominal Exam GI & Abdominal Exam: Normal Bowel Sounds, Unremarkable. absent: Distended, Guarding, Tenderness - Extremities Exam Extremities exam: full ROM, normal inspection - Back Exam Back exam: absent: tenderness, vertebral tenderness - Neurological Exam Neurological exam: Alert, CN II-XII Intact, Oriented x3 - Psychiatric Exam Psychiatric exam: Normal Affect, Normal Mood - Skin Skin Exam: Dry, Intact, Warm Discharge Plan - Discharge Medications Prescriptions: Potassium Chloride 20 meq PO DAILY #4 [email or web address] - Follow Up Plan Condition: STABLE Disposition: HOME/ ROUTINE Patient education suggested?: Yes Instructions: Rhabdomyolysis, Hypokalemia (DC), Leukocytosis (GEN) Additional Instructions: 1. You have stated you do not have a primary care physician at this time. We have made an appointment for you here at [facility] on 04/13 at 2:00pm; Please follow up with us at that time. 2. You were admitted for Rhabdomyolysis. Please continue to drink a large amount of fluid upon discharge. Aim for at least 4L a day. 3. Your lab work revealed a low blood potassium; Please start taking 20meq K+ tablets QD for 4 days as we have prescribed. 4. If symptoms worsen or for any other concerns please go to your nearest emergency department. Referrals: FAMILY PROVIDER,NO [Primary Care Provider] - <Mandi Taylor - Last Filed: 04/05/18 18:06> Provider - Provider Date of Admission: 04/05/18 01:25 Attending physician: Mandi Taylor MD Primary care physician: NO FAMILY PROVIDER Hospital Course - Lab Results Lab Results: Most Recent Lab Values WBC 9.4 10^3/ul (4.5-11.0) 04/04/18 23:37 RBC 4.67 10^6/uL (3.5-6.1) 04/04/18 23:37 Hgb 14.9 g/dL (14.0-18.0) 04/04/18 23:37 Hct 41.7 % (42.0-52.0) L 04/04/18 23:37 MCV 89.3 fl (80.0-105.0) 04/04/18 23:37 MCH 31.9 pg (25.0-35.0) 04/04/18 23:37 MCHC 35.7 g/dl (31.0-37.0) 04/04/18 23:37 RDW 12.9 % (11.5-14.5) 04/04/18 23:37 Plt Count 222 10^3/uL (120.0-450.0) 04/04/18 23:37 MPV 10.1 fl (7.0-11.0) 04/04/18 23:37 PT 11.8 SECONDS (9.4-12.5) 04/04/18 23:37 INR 1.03 (0.93-1.08) 04/04/18 23:37 APTT 25.3 Seconds (25.1-36.5) 04/04/18 23:37 D-Dimer, Quantitative < 200 ng/mL (0-243) 04/04/18 23:37 Sodium 142 mmol/L (132-148) 04/05/18 08:24 Potassium 3.3 mmol/L (3.6-5.0) L 04/05/18 08:24 Chloride 104 mmol/L (98-107) 04/05/18 08:24 Carbon Dioxide 29 mmol/L (21-33) 04/05/18 08:24 Anion Gap 12 (10-20) 04/05/18 08:24 BUN 13 mg/dL (7-21) 04/05/18 08:24 Creatinine 0.7 mg/dl (0.8-1.5) L 04/05/18 08:24 Est GFR ( Amer) > 60 04/05/18 08:24 Est GFR (Non-Af Amer) > 60 04/05/18 08:24 Random Glucose 102 mg/dL (70-110) 04/05/18 08:24 Calcium 8.6 mg/dL (8.4-10.5) 04/05/18 08:24 Phosphorus 3.3 mg/dL (2.5-4.5) 04/05/18 08:24 Magnesium 2.3 mg/dL (1.7-2.2) H 04/05/18 08:24 Total Bilirubin 0.8 mg/dL (0.2-1.3) 04/05/18 08:24 AST 93 U/L (17-59) H D 04/05/18 08:24 ALT 59 U/L (7-56) H 04/05/18 08:24 Alkaline Phosphatase 67 U/L (38-126) 04/05/18 08:24 Lactate Dehydrogenase 673 U/L (333-699) 04/04/18 23:37 Total Creatine Kinase 1177 U/L (35-230) H 04/05/18 08:24 CK-MB (CK-2) 8.1 ng/mL (0.0-3.6) H 04/05/18 08:24 CK-MB (CK-2) % 0.7 % (2.5-3.0) L 04/05/18 08:24 Troponin I < 0.01 ng/mL 04/04/18 23:37 Total Protein 6.2 g/dL (5.8-8.3) 04/05/18 08:24 Albumin 3.7 g/dL (3.0-4.8) 04/05/18 08:24 Globulin 2.5 gm/dL 04/05/18 08:24 Albumin/Globulin Ratio 1.5 (1.1-1.8) 04/05/18 08:24 Urine Color Yellow (YELLOW) 04/05/18 00:13 Urine Appearance Clear (CLEAR) 04/05/18 00:13 Urine pH 6.0 (4.7-8.0) 04/05/18 00:13 Ur Specific [place] >= 1.030 (1.005-1.035) 04/05/18 00:13 Urine Protein 30 mg/dL (<30 mg/dL) H 04/05/18 00:13 Urine Glucose (UA) Negative mg/dL (NEGATIVE) 04/05/18 00:13 Urine Ketones 15 mg/dL (NEGATIVE) H 04/05/18 00:13 Urine Blood Small (NEGATIVE) H 04/05/18 00:13 Urine Nitrate Negative (NEGATIVE) 04/05/18 00:13 Urine Bilirubin Negative (NEGATIVE) 04/05/18 00:13 Urine Urobilinogen 0.2 E.U./dL (<1 E.U./dL) 04/05/18 00:13 Ur Leukocyte Esterase Negative Rohan/uL (NEGATIVE) 04/05/18 00:13 Urine RBC 1 - 3 /hpf (0-2) 04/05/18 00:13 Urine WBC 0 - 2 /hpf (0-6) 04/05/18 00:13 Ur Epithelial Cells 0 - 2 /hpf (0-5) 04/05/18 00:13 Urine Bacteria Rare (NEG) 04/05/18 00:13 Urine Opiates Screen Negative (NEGATIVE) 04/05/18 00:13 Urine Methadone Screen Negative (NEGATIVE) 04/05/18 00:13 Ur Barbiturates Screen Negative (NEGATIVE) 04/05/18 00:13 Ur Phencyclidine Scrn Negative (NEGATIVE) 04/05/18 00:13 Ur Amphetamines Screen Negative (NEGATIVE) 04/05/18 00:13 U Benzodiazepines Scrn Negative (NEGATIVE) 04/05/18 00:13 U Oth Cocaine Metabols Negative (NEGATIVE) 04/05/18 00:13 U Cannabinoids Screen Positive (NEGATIVE) H 04/05/18 00:13 Alcohol, Quantitative < 10 mg/dL (0-10) 04/04/18 23:37 Attending/Attestation - Attestation I have personally seen and examined this patient.: Yes I have fully participated in the care of the patient.: Yes I have reviewed all pertinent clinical information, including history, physical exam and plan: Yes Notes (Text): 04/05/18 18:03 Medical record note made by the resident after discussion with my direction and input after the patient was personally seen and examined by me. I have reviewed the chart and agree that the record accurately reflects by personal performance of the history, physical exam, data review, and medical decision-making, in the course for the patient. I have also personally directed the plan of care. 37 year old male with a PMHx of substance abuse was admitted with Rhabdomylosis, was treated with IV hydration, renal functions are stable, Patient was also treated for hypokalemia.Patient will be discharged home and has been advised to keep himself hydrated.He was also seen by Psychiatry and was cleared for discharge. The issue of ongoing drug abuse was discussed in detail with patient. Management plan was discussed in detail with patient Education was provided.
--- NOTE | 2018-04-05 22:13 | CARD ---
APPROVED REPORT Date of service: 04/04/2018 EKG Measurement Heart [id number] <Conclusion> Normal sinus rhythm Normal ECG
--- NOTE | 2018-04-06 01:10 | CON ---
DATE: 04/05/2018 HISTORY OF PRESENT ILLNESS: In short, the patient is 37-year-old male with reported history of psychosis, disorganized thoughts, and disorganized behavior. Rule out substance-induced psychosis and cannabis abuse. Patient was admitted on the medical site for evaluation of palpitations. Patient brought himself into the hospital. Psych consult was called because patient has history of mental illness, psychosis, disorganized thoughts, and behavior. Patient is very familiar to this typewriter aligner from the multiple consultation services as well as psychiatric admissions. Patient has chronic noncompliance with the medication and followup appointment. Patient has chronic substance abuse problem. This time, patient was seen at the morning time on the medical site. Patient presented relatively well to compare with the previous admission. Patient presented to be oddly related, but not acutely psychotic. Patient reported that right now, he lives with his girlfriend in [place]. Patient reported that he is not taking any medication and is noncompliant with the followup appointments. Patient reported that he does not feel depressed at this point. Patient reported that he has episodes of being depressed, but denied any thoughts of harming himself now. Patient reported that he still smokes marijuana, counseling provided. Patient still wants to pursue career in [email or web address]. VITAL SIGNS: Stable. Temperature 97.7, pulse is 54, blood pressure 119/74, respiration 19, oxygen saturation is 97. MEDICATIONS: Reviewed. Patient was on Tylenol, Lovenox, Protonix, and sodium chloride. LABORATORY DATA: Reviewed. Potassium was low at 3.3. Total creatine kinase is 1177. AST and ALT, mildly elevated but trending down. Urinalysis checked, small blood. Toxicology: Positive for cannabis. MENTAL STATUS EXAMINATION: To compare with the previous admission, patient presented much better. Patient at times oddly related, but not acutely psychotic. Fair eye contact. Speech was underproductive. He has no answers. Mood described as okay. Affect was constricted. Thought process concrete. Thought content, patient denied visual, auditory, tactile hallucinations. Denied paranoid ideation. Patient denied thoughts of harming himself or others. Denied intent or plan. Insight and judgment seems to be limited, but better to compare with the last admission. Impulses are well controlled. IMPRESSION: As per history of psychosis, not otherwise specified; mood disorder, not otherwise specified. This typewriter aligner has impression that most likely patient has personality disorder plus substance abuse. PLAN: At present moment, patient does not exhibit any aggressive or agitated behavior. Patient is more organized to compare to the last admission. Patient poses no imminent danger to self or others. Patient wants to go back to [place] to stay with his as girlfriend. Patient was advised to be followed up with outpatient psychiatrist and discuss medications in the future. At this point, this typewriter aligner will sign off. Should you have any questions, give me a call back. Thank you very much for letting me participate in the care of your patient. Paula Ingram MD
== END 2018-04-05 16:48 | disposition home or self-care (01) ==
LOC: ED 23:16 → ERH 04-05 01:25 → 3RNO 04-05 02:58
PROVIDERS: ADMIT Internal Medicine; ATTEND Internal Medicine
DX: M62.82 Rhabdomyolysis (principal); E87.6 Hypokalemia; R00.2 Palpitations; F20.9 Schizophrenia, unspecified; F12.90 Cannabis use, unspecified, uncomplicated; F39 Unspecified mood [affective] disorder; F60.9 Personality disorder, unspecified; F95.2 Tourette's disorder; Z87.891 Personal history of nicotine dependence; Z91.14 Patient's other noncompliance with medication regimen
CPT/HCPCS: 36415; 71045; 80053; 81001; 82550; 82553; 83615; 83735; 84100; 84484; 85027; 85378; 85610; 85730; 93005; 99285; G0378; G0480; J1650; J2060; J3480; J7030

== ENCOUNTER 2018-04-06 05:32 | Emergency (ER) | payer MEDICAID, OTHER ==
[2018-04-06 05:50] VITALS: BMI 22.9
[2018-04-06 05:56] VITALS: BP 114/68; TEMP 98.1
--- NOTE | 2018-04-06 06:31 | ED PDOC ---
Arrival/HPI - General Chief Complaint: Psychiatric Evaluation Time Seen by Provider: 04/06/18 06:25 - History of Present Illness Narrative History of Present Illness (Text): Patient is a poor historian, appears intoxicated, uncooperative with interview and exam, does not answer all questions, acts annoyed and shrugs at some questions. Unclear history. 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 However upon my interview patient states that he does not know why he is here. States that he could not sleep last night and that "it was all a blur", "my head is messed up". He denies any trauma, head or otherwise. Denies EtOH or drug use. When asked if he has any pain he states "I feel like I am getting screwed right now", but later pointed to his groin and also reported whole body pain. Otherwise patient did not describe any more symptoms. Denied SI /HI, fever, nausea/vomiting, chest pain, dyspnea, abdominal pain, dysuria. Past Medical History - Provider Review Nursing Documentation Reviewed: Yes - Travel History Have you recently traveled outside [place] w/in the past 3 mons?: No - Past History Past History: Unable to Obtain - Infectious Disease Hx of Infectious Diseases: None - Tetanus Immunization Tetanus Immunization: Unknown - Past Medical History Past Medical History: No Previous - Cardiac Hx Cardiac Disorders: No Hx Hypertension: No - Pulmonary Hx Respiratory Disorders: No - Neurological HX Cerebrovascular Accident: No Hx Seizures: No - HEENT Hx HEENT Disorder: No - Renal Hx Renal Disorder: No - Endocrine/Metabolic Hx Endocrine Disorders: No - Hematological/Oncological Hx Cancer: No - Integumentary Hx Dermatological Disorder: No - Musculoskeletal/Rheumatological Hx Falls: No - Gastrointestinal Hx Gastrointestinal Disorders: No - Genitourinary/Gynecological Hx Genitourinary Disorders: Yes (urinary retention 2014) - Psychiatric Hx Psychophysiologic Disorder: Yes Hx Schizophrenia: Yes Hx Substance Use: No (Past: Marijuana,adderall, coke) - Past Surgical History Past Surgical History: No Previous - Anesthesia Hx Anesthesia: No - Suicidal Assessment Feels Threatened In Home Enviroment: No Family/Social History - Physician Review Nursing Documentation Reviewed: Yes Family/Social History: Unknown Family HX Smoking Status: Former Smoker Hx Alcohol Use: Yes Hx Substance Use: No (Past: Marijuana,adderall, coke) Hx Substance Use Treatment: No Allergies/Home Meds Allergies/Adverse Reactions: Allergies No Known Allergies Allergy (Verified 04/06/18 05:49) Review of Systems - Physician Review All systems were reviewed & negative as marked: Yes - Review of Systems Systems not reviewed;Unavailable: Uncooperative Constitutional: Normal Respiratory: Normal Cardiovascular: Normal Gastrointestinal: Normal Genitourinary Male: Other (Penile/scrotal pain) Musculoskeletal: Other ("whole body pain") Skin: Normal Neurological: Headache Psychiatric: absent: Suicidal Ideation Physical Exam Vital Signs Reviewed: Yes Vital Signs Temp Pulse Resp BP Pulse Ox 04/06/18 09:19 80 19 98 04/06/18 05:55 98.1 F 85 18 114/68 97 04/06/18 05:50 98.4 F Temperature: Afebrile Blood Pressure: Normal Pulse: Regular Respiratory Rate: Normal Appearance: Positive for: Non-Toxic Mental Status: Positive for: other (Drowsy and intoxicated) - Systems Exam Head: Present: Atraumatic, Normocephalic Pupils: Present: PERRL Conjunctiva: Present: Normal Mouth: Present: Moist Mucous Membranes Neck: Present: Normal Range of Motion Respiratory/Chest: Present: Clear to Auscultation Cardiovascular: Present: Regular Rate and Rhythm Abdomen: No: Tenderness, Distention Rectal: Present: Other (Patient declined external exam) Genitourinary Male: Present: Normal External Genitalia, Circumcised Penis. No: Lesions, Penile Discharge, Testicle Swelling Upper Extremity: Present: Normal Inspection Lower Extremity: Present: Normal Inspection Neurological: Present: Other (Appears intoxicated) Psychiatric: No: Suicidal Ideation, Homicidal Ideation Medical Decision Making - Lab Interpretations Lab Results: 04/06/18 06:39 04/06/18 06:39 Lab Results 04/06/18 06:39: Alcohol, Quantitative < 10 04/06/18 06:39: Salicylates < 1 L, Acetaminophen < 10.0 L 04/06/18 06:39: Sodium 142, Potassium 3.7, Chloride 104, Carbon Dioxide 26, Anion Gap 16, BUN 16, Creatinine 0.8, Est GFR ( Amer) > 60, Est GFR (Non- Af Amer) > 60, Random Glucose 91, Calcium 9.0, Total Bilirubin 0.6, AST 166 H D , ALT 76 H, Alkaline Phosphatase 76, Total Protein 6.7, Albumin 4.1, Globulin 2.6, Albumin/Globulin Ratio 1.6 04/06/18 06:39: WBC 10.3, RBC 4.43, Hgb 13.7 L, Hct 39.8 L, MCV 89.8, MCH 30.9, MCHC 34.4, RDW 12.9, Plt Count 192, MPV 10.1, Gran % 67.3, Lymph % (Auto) 24.7, [place] % (Auto) 6.4 H, Eos % (Auto) 1.3 L, Baso % (Auto) 0.3, Gran # 6.97 H, Lymph # (Auto) 2.6, [place] # (Auto) 0.7 H, Eos # (Auto) 0.1, Baso # (Auto) 0.03 - RAD Interpretation Radiology Orders: 04/06/18 06:25 HEAD W/O CONTRAST [CT] Stat CHEST ONE VIEW [RAD] Stat - EKG Interpretation EKG Interpretation (Text): 06:32- NSR at 67bpm, normal axis, normal QTc 456, no ST/T changes Interpreted by ED Physician: Yes Type: 12 lead EKG - Transfer of Care Patient signed out to :Mar Bustamante Pending Labs:: CBC, CMP, EtOH, ASA/acetaminophen, UA, UDS Pending Radiology Studies:: CXR Disposition/Present on Arrival - Present on Arrival Any Indicators Present on Arrival: No History of DVT/PE: No History of Uncontrolled Diabetes: No Urinary Catheter: No History of Decub. Ulcer: No History Surgical Site Infection Following: None - Disposition Have Diagnosis and Disposition been Completed?: Yes Diagnosis: Psychiatric care Disposition: HOME/ ROUTINE Disposition Time: 07:00 Condition: IMPROVED Discharge Instructions (ExitCare): Stress Additional Instructions: AUSTYN MEI, thank you for letting us take care of you today. Your provider was Alirio Bustamante DO and you were treated for Psychiatric Care. The emergency medical care you received today was directed at your acute symptoms. If you were prescribed any medication, please fill it and take as directed. It may take several days for your symptoms to resolve. Return to the Emergency Department if your symptoms worsen, do not improve, or if you have any other problems. Please contact your doctor or call one of the physicians/clinics you have been referred to that are listed on the Patient Visit Information form that is included in your discharge packet. Bring any paperwork you were given at discharge with you along with any medications you are taking to your follow up visit. Our treatment cannot replace ongoing medical care by a primary care provider outside of the emergency department. Thank you for allowing the [facility] team to be part of your care today. If you had an X-Ray or CT scan: A Radiologist will review the ED reading if any change in treatment is needed we will contact you. If you had a blood, urine, or wound culture: It will take several days for the results, if any change in treatment is needed we will contact you. If you had an STI test: It will take 48 hours for the results. Please call after 1 week if you have not heard back. Referrals: [facility] [Outside] - Follow up with primary Forms: [employer] (Georgian), WORK NOTE
[2018-04-06 07:00] LABS: BASO # 0.03 K/mm3 (0.0-2.0); BASO % 0.3 % (0.0-3.0); EOS # 0.1 (0.0-0.7); EOS % 1.3 % (1.5-5.0); GRAN # 6.97 (1.4-6.5); GRAN % 67.3 % (50.0-68.0); HEMOGLOBIN 13.7 g/dL (14.0-18.0); LYMPH # 2.6 (1.2-3.4); LYMPH % 24.7 % (22.0-35.0); MEAN CELL VOLUME 89.8 fl (80.0-105.0); MEAN CORPUSCULAR HEMOGLOBIN 30.9 pg (25.0-35.0); MEAN CORPUSCULAR HGB CONC 34.4 g/dl (31.0-37.0); MEAN PLATELET VOLUME 10.1 fl (7.0-11.0); MONO # 0.7 (0.1-0.6); MONO % 6.4 % (1.0-6.0); RBC 4.43 10^6/uL (3.5-6.1); RED CELL DISTRIBUTION WIDTH 12.9 % (11.5-14.5); WHITE BLOOD COUNT 10.3 10^3/ul (4.5-11.0)
[2018-04-06 07:03] LABS: ACETAMINOPHEN < 10.0 ug/ml (10.0-20.0); SALICYLATE < 1 mg/dL (2.0-20.0)
[2018-04-06 07:09] LABS: ALB/GLOB RATIO 1.6 (1.1-1.8); ALBUMIN 4.1 g/dL (3.0-4.8); ALT/SGPT 76 U/L (7-56); AST/SGOT 166 U/L (17-59); BLOOD UREA NITROGEN 16 mg/dL (7-21); GFR AFRICAN-AMERICAN > 60; GFR NON-AFRICAN AMERICAN > 60
--- NOTE | 2018-04-06 07:22 | ED PDOC ---
Physical Exam Vital Signs Temp Pulse Resp BP Pulse Ox 04/06/18 05:55 98.1 F 85 18 114/68 97 04/06/18 05:50 98.4 F Medical Decision Making ED Course and Treatment: 04/06/18 07:00 Case signed out to me by Dr. Flor. Current CT scan is pending for patient and Chest X-ray was negative. 04/06/18 07:[address] scan Impressions: No acute findings. 04/06/18 07:35 Patient is medically cleared for psych evaluation. 04/06/18 08:30 Case discussed with NEIL Agudelo, with Dr. Ingram, who recommends outpatient follow [facility]. Patient was given discharge instructions by Jammie as well who gave clear instructions for follow up. Patient is comfortable, AAOx3, no SI, HI, and he's with a steady gait. He was explained in detail follow up instructions from me as well. I showed him the address of the clinic on the discharge papers and reviewed them with him. He will be discharged home. - Lab Interpretations Lab Results: 04/06/18 06:39 04/06/18 06:39 Lab Results 04/06/18 06:39: Alcohol, Quantitative < 10 04/06/18 06:39: Salicylates < 1 L, Acetaminophen < 10.0 L 04/06/18 06:39: Sodium 142, Potassium 3.7, Chloride 104, Carbon Dioxide 26, Anion Gap 16, BUN 16, Creatinine 0.8, Est GFR ( Amer) > 60, Est GFR (Non- Af Amer) > 60, Random Glucose 91, Calcium 9.0, Total Bilirubin 0.6, AST 166 H D , ALT 76 H, Alkaline Phosphatase 76, Total Protein 6.7, Albumin 4.1, Globulin 2.6, Albumin/Globulin Ratio 1.6 04/06/18 06:39: WBC 10.3, RBC 4.43, Hgb 13.7 L, Hct 39.8 L, MCV 89.8, MCH 30.9, MCHC 34.4, RDW 12.9, Plt Count 192, MPV 10.1, Gran % 67.3, Lymph % (Auto) 24.7, [place] % (Auto) 6.4 H, Eos % (Auto) 1.3 L, Baso % (Auto) 0.3, Gran # 6.97 H, Lymph # (Auto) 2.6, [place] # (Auto) 0.7 H, Eos # (Auto) 0.1, Baso # (Auto) 0.03 - RAD Interpretation Radiology Orders: 04/06/18 06:25 HEAD W/O CONTRAST [CT] Stat CHEST ONE VIEW [RAD] Stat - Scribe Statement The provider has reviewed the documentation as recorded by the Katrin Man Provider Scribe Attestation: All medical record entries made by the Scribe were at my direction and personally dictated by me. I have reviewed the chart and agree that the record accurately reflects my personal performance of the history, physical exam, medical decision making, and the department course for this patient. I have also personally directed, reviewed, and agree with the discharge instructions and disposition. Disposition/Present on Arrival - Present on Arrival Any Indicators Present on Arrival: No History of DVT/PE: No History of Uncontrolled Diabetes: No Urinary Catheter: No History of Decub. Ulcer: No History Surgical Site Infection Following: None - Disposition Have Diagnosis and Disposition been Completed?: Yes Diagnosis: Psychiatric care Disposition: HOME/ ROUTINE Disposition Time: 09:00 Patient Plan: Discharge Patient Problems: Current Active Problems Problem Status Onset Psychiatric care Acute Condition: IMPROVED Discharge Instructions (ExitCare): Stress Additional Instructions: AUSTYN MEI, thank you for letting us take care of you today. Your provider was Alirio Bustamante DO and you were treated for Psychiatric Care. The emergency medical care you received today was directed at your acute symptoms. If you were prescribed any medication, please fill it and take as directed. It may take several days for your symptoms to resolve. Return to the Emergency Department if your symptoms worsen, do not improve, or if you have any other problems. Please contact your doctor or call one of the physicians/clinics you have been referred to that are listed on the Patient Visit Information form that is included in your discharge packet. Bring any paperwork you were given at discharge with you along with any medications you are taking to your follow up visit. Our treatment cannot replace ongoing medical care by a primary care provider outside of the emergency department. Thank you for allowing the [email or web address] team to be part of your care today. If you had an X-Ray or CT scan: A Radiologist will review the ED reading if any change in treatment is needed we will contact you. If you had a blood, urine, or wound culture: It will take several days for the results, if any change in treatment is needed we will contact you. If you had an STI test: It will take 48 hours for the results. Please call after 1 week if you have not heard back. Referrals: [facility]] - Follow up with primary Forms: [facility] ([place]), WORK NOTE
--- NOTE | 2018-04-06 07:30 | CT ---
EXAM: CT Head Without Intravenous Contrast CLINICAL HISTORY: 37 years old, male; Signs and symptoms; Altered mental status/memory loss TECHNIQUE: Axial computed tomography images of the head/brain without intravenous contrast. All CT scans at this facility use at least one of these dose optimization techniques: automated exposure control; mA and/or kV adjustment per patient size (includes targeted exams where dose is matched to clinical indication); or iterative reconstruction. Coronal and sagittal reformatted images were created and reviewed. COMPARISON: No relevant prior studies available. FINDINGS: Brain: Unremarkable. No hemorrhage. No significant white matter disease. No edema. Ventricles: Unremarkable. No ventriculomegaly. Bones/joints: Unremarkable. No acute fracture. Soft tissues: Unremarkable. Sinuses: There is a retention cyst/polyp in the left maxillary sinus. Mastoid air cells: Unremarkable as visualized. No mastoid effusion. IMPRESSION: No acute findings.
--- NOTE | 2018-04-06 09:09 | RAD ---
Date of service: 04/06/2018 PROCEDURE: CHEST RADIOGRAPH, 1 VIEW HISTORY: medical clearance COMPARISON: None available. FINDINGS: LUNGS: Clear. PLEURA: No pneumothorax or pleural fluid seen. CARDIOVASCULAR: Normal. OSSEOUS STRUCTURES: No significant abnormalities. VISUALIZED UPPER ABDOMEN: Normal. OTHER FINDINGS: None. IMPRESSION: No active disease.
--- NOTE | 2018-04-06 10:02 | CARD ---
APPROVED REPORT Date of service: 04/06/2018 EKG Measurement Heart [id number] <Conclusion> Normal sinus rhythm Normal ECG
[2018-04-06 11:07] VITALS: PULSE 80; RESP 19; O2SAT 98
== END 2018-04-06 09:19 | disposition home or self-care (01) ==
LOC: ED 05:32
DX: Z00.8 Encounter for other general examination (principal); F20.9 Schizophrenia, unspecified; Z87.891 Personal history of nicotine dependence
CPT/HCPCS: 70450; 71045; 80053; 85025; 93005; 99283; G0480

== ENCOUNTER 2018-04-07 04:19 | Emergency (ER) | payer MEDICAID, OTHER ==
[2018-04-07 04:19] VITALS: BMI 22.9
== END 2018-04-07 04:43 | disposition left against medical advice (07) ==
LOC: ED 04:19
DX: Z02.89 Encounter for other administrative examinations (principal)